=== PATIENT | female | born 1940 | race Caucasian/White ===

== ENCOUNTER → 2017-01-05 | Outpatient (CLI) | payer OTHER ==
--- NOTE | 2017-01-05 16:52 | DIAGNOSTIC IMAGING REPORT ---
THYROID ULTRASOUND CLINICAL HISTORY: Neck pain. COMPARISON STUDY: None. TECHNIQUE: Sonography of the thyroid gland was performed. FINDINGS: The right thyroid lobe measures 5.2 x 1.9 x 1.5 cm and left lobe measures 5 x 2.5 x 2.8 cm. There is an isoechoic solid nodule within the lower pole of the right lobe that measures 1.6 x 0.7 x 1.1 cm. There is a hypoechoic left lobe nodule that measures 3.3 x 2 x 2.7 cm. This has echogenic foci with comet tail artifact suggestive of a colloid cyst. This has no color flow within it. A few small lymph nodes are noted adjacent to the thyroid gland. No pathologically enlarged lymph nodes are identified. IMPRESSION: 1. Several thyroid nodules, the largest of which is a 3.3 cm hypoechoic left lobe nodule. This nodule is likely benign but ultrasound-guided fine needle aspiration could be performed based on size criteria. 2. No enlarged cervical lymph nodes. A few benign-appearing cervical lymph nodes. Electronically signed by: Lavelle Borges M.D. 01/05/2017 4:51 PM Dictated Date/Time: 01/05/2017 3:54 PM
== END | disposition home or self-care (01) ==
LOC: C.ULTR 14:37
PROVIDERS: ATTEND Nurse Practitioner Family
DX: E04.2 Nontoxic multinodular goiter (principal)

== ENCOUNTER → 2017-01-14 | Outpatient (CLI) | payer OTHER, BC ==
--- NOTE | 2017-01-14 13:36 | Discharge Instructions ---
Discharge Instructions Procedure Procedure Date: Jan 14, 2017. Reason for visit: L Thyroid Nodule. Discharge Discharge Date: Jan 14, 2017. Discharge Diagnosis: L thyroid nodule. Instructions Activity Recommendations: No limitations Return to School/Work: no limitations Recommended Home Diet: Resume Previous Diet Provider Instructions: Ultrasound guided fine-needle aspiration of a cystic left lobe thyroid nodule is performed with 2 passes utilizing 25-gauge needles. Specimens were reviewed by the pathologist in real-time and deemed adequate for diagnosis. There were no immediate complications. Jennifer Thakur Recommendations: Call your doctor if: * Temperature above 101 degrees * Pain not relieved by pain medicine ordered * There is increased drainage or redness from any incision * You have any unanswered questions or concerns. Your Doctors Instructions noted above were prepared by provider Pacheco Solis. Patient Signature Section: Patient Instructions Signature Page Alma Hernadez Patient (or Guardian) Signature/Date: I have read and understand the instructions given to me by my caregivers. Caregiver/RN/Doctor Signature/Date: The above-named patient and/or guardian has received patient instructions on this date. + Original Patient Signature Page (only) stays with chart. Please make copy for patient.
--- NOTE | 2017-01-14 13:57 | DIAGNOSTIC IMAGING REPORT ---
ULTRASOUND-GUIDED FINE-NEEDLE ASPIRATION THYROID CLINICAL HISTORY: Cystic left thyroid nodule. COMPARISON STUDY: Thyroid ultrasound dated 01/05/2017. PROCEDURE: The risks, benefits, and alternatives to the procedure were discussed with the patient. Written informed consent was obtained. The patient was placed supine in ultrasound, and the 3.3 x 2.0 x 2.7 cm predominant cystic nodule in the left lobe of the thyroid was localized by ultrasound and selected for fine needle aspiration. The left neck was prepped and draped in the usual sterile fashion. The nodule was aspirated under ultrasound guidance with 2 passes utilizing 25-gauge needles. Specimens were reviewed by the pathologist in real-time and deemed adequate for diagnosis. The patient tolerated the procedure well and left the department in satisfactory condition. IMPRESSION: Completed fine-needle aspiration of a left thyroid nodule as above. Electronically signed by: Pacheco Solis M.D. 01/14/2017 1:55 PM Dictated Date/Time: 01/14/2017 1:54 PM
== END | disposition home or self-care (01) ==
LOC: C.ULTR 12:43
PROVIDERS: ATTEND Nurse Practitioner Family
DX: E04.1 Nontoxic single thyroid nodule (principal); M54.2 Cervicalgia

== ENCOUNTER 2019-05-04 14:03 | Inpatient (IN) ==
[2019-05-04] MEDS ORDERED: ONDANSETRON INJ 2 MG/ML 2 ML VIAL IV PRN (15:33)
[2019-05-04] MEDS ORDERED: ACETAMINOPHEN 325 MG TAB PO PRN (15:33)
--- NOTE | 2019-05-04 16:03 | Gastrointestinal Consultation ---
Date of Consultation May 04, 2019 Assessment & Plan (1) RUQ abdominal mass: recommend a/p CT scan heme pos dark stools--recommend EGD and colo but she ate lunch so EGD only tomorrow. Proc and risks explained to patient which include but not limited to med reaction, bleeding, perforation, aspiration, and missed lesions. Po Protonix for possible PUD Fe def anemia--follwo H and H and transfuse prn History of Present Illness Reason for Consultation: GI bleeding Requesting Physician: DR John Xiong Attending Physician: Gisella Romero MD History of Present Illness CC dark stools HPI Pt presented to [facility] with weakness couple weeks ago with dizziness. Hgb low and she was placed on Fe. She continued to be symptomatic. Today Hgb 7.4, Fe low. She states dark stools once a day recently. Lost 30 lbs one year ago then stable. Notes early satiety. Also noted RUQ mass recently . No EGD in past. Last colo 2000. She reportedly had heme pos stool on rectal in clinic. Some RUQ discomfort. Fhx noncontributory Allergies Allergy/AdvReac Type Severity Reaction Status Date / Time No Known Allergies Allergy Unverified 05/04/19 15:33 Home Medications Home Medications Medication Instructions Recorded Confirmed Type Hawthorne-3 2 cap PO BID 05/04/19 05/04/19 History calcium carbonate [Calcium 500] mg PO DAILY 05/04/19 History Patient History Medical History Brain tumor Macular degeneration Microcytic anemia Social History Preferred Language: [place] Communication Ability: Effective Beliefs That Will Affect Care: None marital status: Current Living Situation: Spouse Other Information That Helps Us Care for You: No Feels Safe at Home: Yes Safety Concerns: Feels Safe At This Time Smoking Status: Never smoker Hx Alcohol Use: No Hx Substance Use: No Review of Systems Review of Systems: All systems reviewed & are unremarkable except as noted in HPI & below Physical Exam Eyes: PERRL, conjunctivae normal, anicteric sclerae ENMT: external ear and nose normal, oropharynx normal Neck: normal visual inspection and trachea midline Respiratory: normal respiratory effort, lungs clear to auscultation Cardiovascular: RRR, no murmur, no edema Gastrointestinal (Abdomen): pos bs, RUQ hard mass, no guarding nor rebound
[2019-05-04 16:07] LABS: Hematocrit (blood only) 24.3 % (37-47); Hemoglobin 7.6 g/dL (12.0-16.0); Mean Corpuscular Hemoglobin 21.8 pg (25-34); Mean Corpuscular Hgb Conc 31.3 g/dL (32-36); Mean Corpuscular Volume 69.8 fL (80-100); Mean Platelet Volume 7.9 fL (7.4-10.4); Platelet Count 344 K/uL (130-400); RDW Coefficient of Variation 18.8 % (11.5-14.5); RDW Standard Deviation 47.3 fL (36.4-46.3); Red Blood Count 3.48 M/uL (4.2-5.4); White Blood Count 10.11 K/uL (4.8-10.8)
[2019-05-04 16:19] LABS: INR 1.2 (0.9-1.1); Partial Thromboplastin Ratio 0.9; Partial Thromboplastin Time 24.4 Seconds (21.0-31.0); Prothrombin Time 11.9 Seconds (9.0-12.0)
[2019-05-04 16:26] LABS: Alanine Aminotransferase 55 U/L (12-78); Albumin Level 2.6 gm/dl (3.4-5.0); Aspartate Aminotransferase 125 U/L (15-37); BUN Creatinine Ratio 19.8 (10-20); Blood Urea Nitrogen 18 mg/dl (7-18); Calcium 8.6 mg/dl (8.5-10.1); Carbon Dioxide 27 mmol/L (21-32); Chloride 98 mmol/L (98-107); Est GFR (African American) 70.9; Est GFR (Non-African American) 61.2; Glucose 100 mg/dl (70-99); Potassium 4.7 mmol/L (3.5-5.1); Sodium 132 mmol/L (136-145)
[2019-05-04 16:29] LABS: Albumin Globulin Ratio 0.7 (0.9-2); Alkaline Phosphatase 148 U/L (45-117); Bilirubin,Total 0.5 mg/dl (0.2-1); Globulin 3.9 gm/dl (2.5-4.0); Total Protein 6.5 gm/dl (6.4-8.2)
[2019-05-04] MEDS: PANTOprazole 40 MG in SYRINGE 0 ML IV SCH (17:00)
[2019-05-04] MEDS ORDERED: SODIUM CHLORIDE 0.9% 250 ML IV PRN (17:19)
--- NOTE | 2019-05-04 18:09 | History & Physical Report ---
Date of Service May 04, 2019 Assessment & Plan (1) RUQ abdominal mass: GI Bleed -Positive Heme-occult in office today. -GI Consulted - Upper Endoscopy in AM tomorrow. -NPO After midnight -Famotidine 20mg IV BID ordered for gastric bleed protection. -Follow H and H and transfuse as needed. RUQ Abdominal Mass -Mass in RUQ abdomen measures 12x7cm. -GI Consulted. -CT w/ Abd/Pelv ordered. Anemia - acute blood loss -Hgb 8.2 in office and 7.6 now. -Type and Cross ordered for packed RBC if Hgb <7 PRN. -CBC ordered for AM -Home Iron on hold. Elevated transaminases - Follow CT scan results. Macular Degeneration -Hx of 9 years -Takes Sharon 3 and Eye vitamins -Meds on hold. FEN/GI - No IV Fluids, Regular Diet - NPO after midnight, Replete Electrolytes as needed Code Status - Full code DVT Prophylaxis - Ambulate as tolerated, medical anticoagulation contraindicated - concern for GI Bleed. Dispo - PCU Telemetry Present on Admission?: Yes (2) GI bleed: Present on Admission?: Yes (3) Anemia: Present on Admission?: Yes (4) Macular degeneration: Present on Admission?: Yes History of Present Illness Chief Complaint: Patient is a pleasant 78 year old female with PMHx of Anemia, Brain tumor, and Macular Degeneration, that presents to the hospital today under direct admission after evaluation at outpatient clinic for GI Bleed, Abdominal Mass of recent discovery, and Symptomatic Anemia. Patient states that 2 weeks ago she had presented to the outpatient clinic with complaints of fatigue and after work up was found to have a microcytic anemia with a Hgb 7.4. She was prescribed iron pills that she has been taking as prescribed, but still continued to notice increasing presyncopal symptoms, balance disturbances, weakness, and fatigue. She states that since then she still is unable to climb a flight of stairs without becoming SOB and requiring to rest and also that she is unable to style her hair because holding her arms up high exhausts her. Patient also notes that as of 1 week ago, she noticed a firm abdominal mass (12cm L x 7cm W) located under her ribcage on the right. In the clinic today patient presented for f/u and had a Hgb of 8.2 and a positive heme-occult and was sent for admission for further evaluation. Patient reports occasional loose dark stools, but denies any edward blood. Primary Care Provider: Kristina Argueta PA-C Allergies Allergy/AdvReac Type Severity Reaction Status Date / Time No Known Allergies Allergy Unverified 05/04/19 15:33 Home Medications Home Medications Medication Instructions Recorded Confirmed Type Sharon-3 2 cap PO BID 05/04/19 05/04/19 History calcium carbonate [Calcium 500] mg PO DAILY 05/04/19 History Past Med/Surg History Medical History Brain tumor Macular degeneration Microcytic anemia Social History Preferred Language: Czech Communication Ability: Effective Beliefs That Will Affect Care: None marital status: Current Living Situation: Spouse Other Information That Helps Us Care for You: No Feels Safe at Home: Yes Safety Concerns: Feels Safe At This Time Smoking Status: Never smoker Hx Alcohol Use: No Hx Substance Use: No Review of Systems Constitutional: + fatigue, + weakness and + weight loss (30 lbs weight loss over 1 year); no fever, no chills, no sweats and no increased appetite (Decreased appetite) Eyes: no eye pain and no photophobia Ear, Nose, Mouth, Throat: + dizziness; no ear pain, no tinnitus, no nasal trauma and no epistaxis Respiratory: + dyspnea on exertion; no cough, no chest congestion and no pain on inspiration Cardiovascular: + dyspnea, + dyspnea on exertion and + lightheadedness; no chest pain, no chest pain at rest, no dyspnea at rest, no palpitations, no syncope (However, near syncopal ) and no edema Gastrointestinal: + early satiety, + heartburn, + nausea (occasional after eating), + blood in stools (Dark loose stools, but no edward blood) and + problem reported (1 week history of abdominal mass in RUQ ); no abdominal pain, no vomiting, no coffee ground emesis, no hematemesis, no pain with swallowing, no dysphagia, no change in bowel habits, no constipation and no diarrhea/loose stools Genitourinary: no dysuria, no urinary frequency, no urinary hesitancy, no urinary incontinence and no hematuria Musculoskeletal: + back pain (noted in the past, but not currently) and + muscle weakness (weakness noted when keeping her arms above her heads) Integumentary: no rash Neurologic: + unsteadiness and + dizziness Physical Exam Constitutional: well developed and well nourished Eyes: normal visual garcía by confrontation, + anicteric sclerae and EOM intact bilaterally ENMT: Nose: no septum abnormality, no sinus tenderness, no epistaxis, face symmetric, no facial edema and no facial tenderness Neck: normal visual inspection and trachea midline; no anterior neck swelling and neck nontender Respiratory: normal respiratory effort; no respiratory distress, no labored breathing, does not use accessory muscles and no cough Auscultation: lungs clear to auscultation bilaterally Cardiovascular: Rate/Rhythm: regular rate and regular rhythm Heart Sounds: normal S1 and normal S2; no click, no murmur and no cardiac rub Vessels: dorsalis pedis pulses present; no JVD Extremities: no pedal edema Gastrointestinal (Abdomen): Inspection/Auscultation: + abdomen distended (Slight distension overlying patient's abdominal mass in the RUQ.) and normal bowel sounds; no abdominal wall ecchymosis Percussion/Palpation: + abdomen tender (TTP overlying abdominal mass 3/10 pain. ), + abdominal mass (RUQ mass measuring 12x7cm ) and + abdomen firm (Firm overlying abdominal mass in RUQ); no guarding Skin: no rashes, warm and dry normal turgor Neurologic: awake; not confused and not obtunded Psychiatric: A+Ox3, euthymic affect Orientation: alert and oriented x 3 Results & Data Vital Signs (Past 12 Hours) Vital Signs Temp Pulse Resp BP Pulse Ox 05/04/19 17:16 36.7 C 79 16 97/60 L 100 Laboratory Results Abnormal lab results 05/04/19 05/04/19 05/04/19 Range/Units 15:56 15:56 15:56 RBC 3.48 L (4.2-5.4) M/uL Hgb 7.6 L (12.0-16.0) g/dL Hct 24.3 L (37-47) % MCV 69.8 L (80-100) fL MCH 21.8 L (25-34) pg MCHC 31.3 L (32-36) g/dL RDW Std Deviation 47.3 H (36.4-46.3) fL RDW Coeff of Mitchell 18.8 H (11.5-14.5) % INR 1.2 H (0.9-1.1) Sodium 132 L (136-145) mmol/L Glucose 100 H (70-99) mg/dl AST 125 H (15-37) U/L Alkaline Phosphatase 148 H (45-117) U/L Albumin 2.6 L (3.4-5.0) gm/dl Albumin/Globulin Ratio 0.7 L (0.9-2) Crossmatch 05/04/19 Range/Units 15:56 RBC (4.2-5.4) M/uL Hgb (12.0-16.0) g/dL Hct (37-47) % MCV (80-100) fL MCH (25-34) pg MCHC (32-36) g/dL RDW Std Deviation (36.4-46.3) fL RDW Coeff of Mitchell (11.5-14.5) % INR (0.9-1.1) Sodium (136-145) mmol/L Glucose (70-99) mg/dl AST (15-37) U/L Alkaline Phosphatase (45-117) U/L Albumin (3.4-5.0) gm/dl Albumin/Globulin Ratio (0.9-2) Crossmatch See Detail Medications Administered Current Inpatient Medications Acetaminophen (Tylenol) 650 mg PO Q4H PRN PRN Reason: pain/fever Stop: 06/03/19 15:32 Pantoprazole Sodium 40 mg/ (Syringe) 10 mls @ 5 mls/min IV BID@0900,2100 ALIVIA Stop: 06/03/19 16:59 Last Admin: 05/04/19 17:00 Dose: 5 mls/min Documented by: Sodium Chloride (Nss) 250 mls @ 15 mls/hr IV .[id number] PRN PRN Reason: For Transfusion Stop: 06/03/19 17:18 Ondansetron HCl (Zofran) 4 mg IV Q6H PRN PRN Reason: Nausea Stop: 06/03/19 15:32 Code Status & VTE Plan Code Status Full Code VTE Prophylaxis Plan VTE Prophylaxis will be ordered: No Reason for no VTE drug order: Contraindicated Supervising Physician Co-Signing Physician Notes Resident Physician Supervision Note: I independently interviewed and examined the patient and verified the ferrara history and physical, reviewed labs and image studies, discussed the case with the resident Dr. Wilkinson and agree with the findings and care plan. PG Care Time/CCT Total # of Minutes Spent Total Time Spent with Patient: Total time spent is greater than 50% in coordination of care (as documented) at patient's floor/unit and/or counseling patient: Resident Activity Tracking Resident Involvement: Resident Care Provided Care Provided: Adult Hospital Medicine
[2019-05-04] MEDS ORDERED: IOVERSOL 100ml IV PRN (19:52)
--- NOTE | 2019-05-04 20:32 | CT Scan Report ---
ABDOMEN AND PELVIS CT WITH IV AND ORAL CONTRAST CT DOSE: 367.64 mGycm HISTORY: Acute generalized abdominal pain with abdominal mass. abdominal pain, abdominal mass TECHNIQUE: Multiaxial CT images of the abdomen and pelvis were performed following the use of intrave nous and oral contrast. A dose lowering technique was utilized adhering to the principles of ALARA. COMPARISON STUDY: None. FINDINGS: Indeterminate 4 mm solid nodule of the basal left lower lobe, image 43 series 3. Right lung base appe ars clear. There is no pneumatosis or pneumoperitoneum identified. Imaged inferior cardiac chambers a re mildly enlarged with coronary arterial calcifications. Spleen is unremarkable. Mild generalized pancreatic atrophy. Adrenal glands appear unremarkable. Mild ly contracted gallbladder. Periportal edema without biliary ductal dilation. Biliary tree appears pat ent. Multiple large masses are noted about the liver occupying the majority of the superior right hep atic lobe. Cerebral mass or conglomerate masses of the left hepatic lobe noted measuring up to 8.4 x 7.6 cm. Trace perihepatic ascites. 7.9 cm cyst of the lateral right kidney. No renal or ureteral calc chetna or obstructive uropathy. Urinary bladder is unremarkable. Uterus and adnexa are also within alon l limits. Aorta and IVC are within normal limits. No small bowel obstruction. There is a large heterogeneous infiltrative enhancing and likely necrotic mass of the distal transverse colon/splenic flexure which measures up to 6.7 x 4.2 x 6.2 cm. On the sagittal images the greatest dimension of this lesion measures up to 8 cm in length. Mass results in marked luminal narrowing of the colon. Pericolonic stranding is noted with adjacent pericolonic promi nent lymph nodes. Mild mesenteric and omental nodularity about the abdominal left upper quadrant. Mod erate volume formed colonic stool noted throughout. Fluid seen within the terminal ileum. Mild genera lized body wall edema. Tarlov cysts noted about the sacrum. Severe degenerative changes about the pub ic symphysis. There is no definite evidence of osseous metastatic disease. Bones appear intact. IMPRESSION: 1. Large infiltrative mass with transmural involvement involves the distal transverse colon and splen ic flexure measuring up to 8.0 cm in greatest dimension. Adjacent prominent pericolonic lymph nodes w ith adjacent mesenteric/omental stranding and nodularity compatible with lymphatic metastasis with po ssible omental carcinomatosis. 2. The mass results in marked narrowing of the bowel lumen without bowel obstruction, pneumatosis or pneumoperitoneum. 3. Extensive hepatic metastatic disease. 4. Indeterminate 4 mm solid nodule of the basal left lower lobe. 5. No evidence of osseous metastatic disease. Electronically signed by: Josue Galindo M.D. 05/04/2019 8:29 PM
[2019-05-04] MEDS ORDERED: FAMOTIDINE 20 MG in SYRINGE 3 ML IV SCH (21:00)
[2019-05-04] MEDS ORDERED: SODIUM CHLORIDE 0.9% 1000ML 500 ML IV ONE (21:49)
[2019-05-04] MEDS ORDERED: SODIUM CHLORIDE 0.9% 1000ML 1,000 ML IV SCH (22:00)
[2019-05-05 00:40] LABS: Hematocrit (blood only) 21.5 % (37-47); Hemoglobin 6.9 g/dL (12.0-16.0)
[2019-05-05] MEDS ORDERED: hydrOXYzine HCl 10 MG TAB PO PRN (02:52)
[2019-05-05] MEDS ORDERED: LORazepam 0.5 MG/1 ML VIAL IV PRN (02:52)
[2019-05-05] MEDS ORDERED: SODIUM CHLORIDE 0.9% 250 ML IV PRN (02:52)
[2019-05-05] MEDS: PANTOprazole 40 MG in SYRINGE 0 ML IV SCH (08:34)
--- NOTE | 2019-05-05 09:35 | Consultation Report ---
DATE OF CONSULTATION: 05/05/2019 MEDICAL ONCOLOGY CONSULTATION REASON FOR CONSULTATION: Probable metastatic colorectal cancer (hepatic mets). HISTORY OF PRESENT ILLNESS: Alma is a very pleasant 79-year-old female who was admitted to [facility] yesterday with suspected gastrointestinal bleeding. The patient had been complaining of fatigue and decreased exercise tolerance for a couple of months now. She actually notes trying to donate blood a few months back and was told she was anemic. She had brought this up to her primary provider and no further workup she has undertaken. Upon admission, the patient was found to be profoundly anemic with hemoglobin of 7.6, hematocrit 24.3 and MCV of 69.8 suggestive of ongoing iron deficiency. Also of note, liver transaminases and alkaline phosphatase are both markedly elevated and her albumin is quite low at 2.6. The patient relates a 30-pound weight loss over the past year. She has had no bowel symptoms per se, just some nonspecific migratory abdominal pains that had never been persistent. She also denies any change in her stool quality, shape, or presence of melena. Upon presentation to the Emergency Room, CT scan of the abdomen and pelvis confirms a relatively large transverse colon mass and innumerable hepatic metastatic lesions. Gastroenterology is currently on consult, I suspect a colonoscopy will be done to establish a diagnosis. The patient has no family history of colorectal cancer. PAST MEDICAL HISTORY: Positive for brain tumor, macular degeneration and microcytic anemia. HOME MEDICATIONS: Include omega 3 fish oil, calcium carbonate. ALLERGIES: No known drug allergies. SOCIAL HISTORY: The patient is , resides with her spouse, is retired. She is a nonsmoker, nondrinker, nonsubstance abuser. FAMILY HISTORY: Again, negative for colorectal cancer. However, she had a brother who recently passed from mantle cell lymphoma. REVIEW OF SYSTEMS: CONSTITUTIONAL: As per HPI, most notably for fatigue, decreased exercise tolerance, anorexia and weight loss. Negative for fevers, chills or sweats. SKIN: No rashes or lesions. No history of dermatoses. HEENT: Negative for headaches, lightheadedness or dizziness. No acute visual or hearing deficits. No sinus symptoms, sore throat or dysphagia. LYMPHATICS: No history of lymphoproliferative disease. CARDIAC: No history of coronary artery disease. No current angina or palpitations. PULMONARY: No history of COPD. No shortness of breath, dyspnea or orthopnea. No cough or hemoptysis. GASTROINTESTINAL: Again, vague nonspecific abdominal pains. Denies diarrhea or constipation. No hematochezia, melena or edward rectal bleeding is reported. GENITOURINARY: No hematuria, dysuria, or urinary incontinence. PSYCHIATRIC: Negative for anxiety, depression or psychoses. MUSCULOSKELETAL: Negative for arthralgias or myalgias. No overt muscle weakness. ENDOCRINE: Negative for diabetes or thyroid disease. NEUROLOGIC: Negative for seizure, stroke, or migraine headache. HEMATOLOGIC: Positive for microcytic anemia. PHYSICAL EXAMINATION: GENERAL: A very pleasant 79-year-old female. Awake, alert and appropriate, in no acute distress. VITAL SIGNS: Temperature 36.5, pulse 69, respiratory rate 17, blood pressure 102/60. SKIN: Warm, dry, noncyanotic without petechia, rash or ecchymosis. HEENT: Head is atraumatic, normocephalic. Eyes: PERRLA, EOMI. Sclerae nonicteric. No conjunctival injection. Nares patent without rhinorrhea or discharge. Throat is clear. Tongue is midline. Mucous membranes are moist. NECK: Supple without JVD or thyromegaly. LYMPHATICS: No cervical, supraclavicular, axillary or inguinal palpable nodes. HEART: Regular rate and rhythm. No clicks, rubs, murmurs or gallops. LUNGS: Clear to auscultation bilaterally. ABDOMEN: Soft, nontender, nondistended. No palpable hepatosplenomegaly. EXTREMITIES: No calf tenderness or swelling. No clubbing, cyanosis or edema. MUSCULOSKELETAL: Strength and pulses are equal in all 4 quadrants. NEUROLOGICAL: She is awake, alert and oriented x3. Cranial nerves II-XII are intact. No gross motor or sensory deficits are noted. LABORATORY DATA: WBC count 10,110, hemoglobin 6.9, platelet count 344,000. PT 11.9, PTT 24.4. Sodium 132, potassium 4.7, chloride 98, carbon dioxide 27, BUN 18, creatinine 0.89. AST 125, alkaline phosphatase 148, albumin 2.6. RADIOGRAPHIC DATA: CT scan of the abdomen and pelvis reveals a large infiltrative mass with transmural involvement in distal transverse colon, splenic flexure, measuring 8 cm. Adjacent prominent pericolonic lymph nodes with adjacent mesenteric and omental stranding, extensive hepatic metastatic disease with relatively large left hepatic lobe lesion. IMPRESSION: 1. Probable metastatic colorectal cancer. 2. Microcytic anemia consistent with iron deficiency. 3. Elevated liver transaminases. 4. Hypoalbuminemia. 5. Anorexia/weight loss. PLAN: I had the pleasure of meeting Alma today at bedside. She admits to feeling poorly for about 2 months leading up to admission. She also reports a 30-pound weight loss over the past year. Surprisingly, she did not manifest more severe abdominal symptoms. CT scan suggests this lesion may be near obstructing. Would encourage Gastroenterology to proceed with formal colonoscopy and biopsy to establish a diagnosis and to stratify risk of possible obstruction moving forward. Generally in the setting of metastatic disease, surgery is not a part of management unless there is an impending obstruction risk. I have asked the managing mba internship to proceed with a CEA level and perhaps iron studies. Once the patient is completely worked up, would consider giving her some IV iron to expedite hematopoietic recovery. Her nutritional status at some point will need to be addressed as well. Generally speaking, metastatic colorectal cancer is managed with a combination oxaliplatin, 5-FU and leucovorin along with the appropriate targeted therapy. Once a biopsy is obtained, we will request KRAS analysis. We will continue to follow along during the patient's hospital stay and establish outpatient followup once diagnosis is confirmed. Thank you very much for allowing me to participate in her care. If you have any questions or concerns, feel free to contact me at any time.
[2019-05-05 09:38] LABS: Hematocrit (blood only) 31.2 % (37-47); Hemoglobin 9.9 g/dL (12.0-16.0); Mean Corpuscular Hemoglobin 23.2 pg (25-34); Mean Corpuscular Hgb Conc 31.7 g/dL (32-36); Mean Corpuscular Volume 73.1 fL (80-100); Mean Platelet Volume 7.8 fL (7.4-10.4); Platelet Count 315 K/uL (130-400); RDW Coefficient of Variation 20.7 % (11.5-14.5); RDW Standard Deviation 54.4 fL (36.4-46.3); Red Blood Count 4.27 M/uL (4.2-5.4); White Blood Count 8.33 K/uL (4.8-10.8)
[2019-05-05 09:50] LABS: Anisocytosis Present; Basophils # (auto) 0.04 K/uL (0-0.2); Basophils % (auto) 0.5 %; Eosinophils # (auto) 0.08 K/uL (0-0.5); Immature Granulocytes # (auto) 0.04 K/uL (0.00-0.02); Immature Granulocytes % (auto) 0.5 %; Lymphocytes # (auto) 0.85 K/uL (1.2-3.4); Lymphocytes % (auto) 10.2 %; Microcytosis Present; Monocytes # (auto) 0.69 K/uL (0.11-0.59); Monocytes % (auto) 8.3 %; Neutrophils # (auto) 6.63 K/uL (1.4-6.5); Neutrophils % (auto) 79.5 %
[2019-05-05 10:21] LABS: BUN Creatinine Ratio 13.5 (10-20); Calcium 8.2 mg/dl (8.5-10.1); Creatinine Clr Calc Pharmacy 54.3 ml/min; Est GFR (African American) 85.3; Est GFR (Non-African American) 73.6; Potassium 3.8 mmol/L (3.5-5.1)
--- NOTE | 2019-05-05 11:15 | Palliative Care Consultation ---
Date of Consultation May 05, 2019 Assessment & Plan (1) Goals of care, counseling/discussion: -79 year old female patient with PMH macular degeneration, microcytic anemia, and brain tumor presented to the hospital as a direct admission after evaluation at outpatient clinic for GI Bleed, abdominal mass of recent discovery, and symptomatic anemia. Apparently, two weeks ago she had presented to the outpatient clinic with complaints of fatigue and after work up was found to have a microcytic anemia with a hgb 7.4. She was prescribed medication which she had been taking. She then developed fatigue and presyncopal symptoms. CT abd/ pelvis shows: "1. Large infiltrative mass with transmural involvement involves the distal transverse colon and splenic flexure measuring up to 8.0 cm in greatest dimension. Adjacent prominent pericolonic lymph nodes with adjacent mesenteric/omental stranding and nodularity compatible with lymphatic metastasis with possible omental carcinomatosis. 2. The mass results in marked narrowing of the bowel lumen without bowel obstruction, pneumatosis or pneumoperitoneum. 3. Extensive hepatic metastatic disease. 4. Indeterminate 4 mm solid nodule of the basal left lower lobe. 5. No evidence of osseous metastatic disease." Patient is to undergo EGD today and colonoscopy after she is prepped. Heme/onc consulted to follow, will know treatment plan after biopsy results. Palliative care is consulted to provide supportive care. -Met with patient and her , Elke, in room 219. Patient is feeling well, sitting in chair. She appears healthy and younger than stated age. -Patient currently has no symptoms. She is feeling better after transfusion. Patient's is also currently suffering from malignant disease and starts radiation treatment on 05/25. They are both remarkably upbeat given their situation. They have one adult daughter who lives close by, but she does not know about her mother's illness as of yet. -Patient is interested in following with palliative care as an outpatient if any symptoms or difficulties arise. I gave her the information for Dr. Tam's outpatient office and a number to call to schedule an appointment. -Palliative care will follow as needed throughout hospitalization. Uncertain treatment plan at this point until biopsy results are back and options are presented. (2) GI bleed: (3) RUQ abdominal mass: Supervising Physician Co-Signing Physician Notes Chart reviewed, patient seen and examined-no family or friends at bedside. ER Collaborated with Carie Tayla, CHARGE OUT CLERK PE: Patient awake and alert, no acute distress HEENT: EOMI, hearing within normal limits Respirations: Unlabored CV: Well-perfused Neuro: Alert and oriented x4 Agree with above note, assessment and plan as per CRISTI Walsh-will continue to follow and assist patient and family with medical decision making. Discussed outpatient palliative follow-up if patient desires-information given regarding contacting outpatient clinic. History of Present Illness Reason for Consultation: Supportive care Requesting Physician: Dr. Wilkinson Attending Physician: Gisella Romero MD History of Present Illness This 79 year old female patient with PMH macular degeneration, microcytic anemia, and brain tumor presented to the hospital as a direct admission after evaluation at outpatient clinic for GI Bleed, abdominal mass of recent discovery, and symptomatic anemia. Apparently, two weeks ago she had presented to the outpatient clinic with complaints of fatigue and after work up was found to have a microcytic anemia with a hgb 7.4. She was prescribed medication which she had been taking. She then developed fatigue and presyncopal symptoms. CT abd/ pelvis shows: "1. Large infiltrative mass with transmural involvement involves the distal transverse colon and splenic flexure measuring up to 8.0 cm in greatest dimension. Adjacent prominent pericolonic lymph nodes with adjacent mesenteric/omental stranding and nodularity compatible with lymphatic metastasis with possible omental carcinomatosis. 2. The mass results in marked narrowing of the bowel lumen without bowel obstruction, pneumatosis or pneumoperitoneum. 3. Extensive hepatic metastatic disease. 4. Indeterminate 4 mm solid nodule of the basal left lower lobe. 5. No evidence of osseous metastatic disease." Patient is to undergo EGD today and colonoscopy after she is prepped. Heme/onc consulted to follow, will know treatment plan after biopsy results. Palliative care is consulted to provide supportive care. Thank you kindly for this consult. I will follow as needed. Allergies Allergy/AdvReac Type Severity Reaction Status Date / Time No Known Allergies Allergy Verified 05/05/19 12:21 Home Medications Home Medications Medication Instructions Recorded Confirmed Type [place]-3 2 cap PO BID 05/04/19 05/04/19 History calcium carbonate [Calcium 500] mg PO DAILY 05/04/19 History Patient History Medical History Brain tumor Macular degeneration Microcytic anemia Surgical History No history of previous surgery Social History Preferred Language: Dutch Communication Ability: Effective Beliefs That Will Affect Care: None marital status: Current Living Situation: Spouse Other Information That Helps Us Care for You: No Feels Safe at Home: Yes Safety Concerns: Feels Safe At This Time Smoking Status: Never smoker Do You Dip or Chew Tobacco: No ; Hx Alcohol Use: No Hx Substance Use: No Review of Systems Constitutional: + fatigue and + weakness Respiratory: no dyspnea Cardiovascular: no chest pain and no edema Gastrointestinal: no abdominal pain RUQ mass Physical Exam Constitutional: well developed and well nourished appears younger than stated age ENMT: external ear and nose normal, oropharynx normal Neck: normal visual inspection Respiratory: normal respiratory effort, lungs clear to auscultation Cardiovascular: RRR, no murmur, no edema Gastrointestinal (Abdomen): Percussion/Palpation: + abdominal mass Skin: no rashes, warm and dry Neurologic: moves all extremities and awake Psychiatric: A+Ox3, euthymic affect Insight: excellent insight Results & Data Vital Signs (Past 12 Hours) Vital Signs Temp Pulse Resp BP Pulse Ox 05/05/19 08:32 36.8 C 65 16 91/51 L 95 05/05/19 08:21 67 18 91/51 L 98 05/05/19 07:52 69 16 97/63 L 95 05/05/19 07:22 69 17 102/60 96 05/05/19 06:51 36.5 C 69 16 93/54 L 95 05/05/19 06:37 36.8 C 62 16 90/50 L 94 05/05/19 06:15 36.3 C L 69 16 86/51 L 95 05/05/19 05:00 74 18 98/57 L 97 05/05/19 04:35 73 16 94/54 L 95 05/05/19 04:05 78 18 94/60 L 93 05/05/19 03:32 37.1 C 75 16 96/56 L 97 05/05/19 03:20 37.1 C 79 18 96/58 L 94 PG Care Time/CCT Total # of Minutes Spent Total Time Spent with Patient: Total time spent is greater than 50% in coordination of care (as documented) at patient's floor/unit and/or counseling patient: Time Spent Midlevel 50 minutes with >50% of the time spent at bedside with patient and family discussing condition and GOC. Attending Spent 20 minutes in addition to the 50 minutes spent by CRISTI Walsh for a total of 70 minutes with greater than 50% of the time spent at bedside discussing role of palliative care as well as outpatient follow-up availability.
--- NOTE | 2019-05-05 11:47 | Anesthesiology Consultation ---
Date of Service May 05, 2019 Assessment & Plan (1) Encounter for pre-operative examination: Chart Review Chart Review: Acceptable Risk for Surgery and Patient NOT seen in Pre Admission Testing Consults Requested none ASA ASA3 Proposed Anesthesia Anesthesia Type: MAC Risk / Benefits Reviewed With: PT / POA / Parent / Guardian, Accepts Plan and Informed Consent Obtained History Surgery Operation Date: 05/05/19 08:30 Proposed Procedures p Esophagogastroduodenoscopy Dr Min Copeland Height/Weight Height: 5 ft 6 in Weight: 61.6 kg Allergies Allergy/AdvReac Type Severity Reaction Status Date / Time No Known Allergies Allergy Verified 05/05/19 12:21 Medications Home Medications Medication Instructions Recorded Confirmed Last Taken [place]-3 2 cap PO BID 05/04/19 05/04/19 05/04/19 calcium carbonate [Calcium 500] mg PO DAILY 05/04/19 05/04/19 Active Medications Generic Name Dose Route Start Last Admin Trade Name Freq PRN Reason Stop Dose Admin Pantoprazole Sodium 40 mg/ 10 mls @ 5 mls/min 05/04/19 17:00 05/05/19 08:34 Syringe IV 06/03/19 16:59 5 mls/min BID@0900,2100 ALIVIA Administration Ioversol 94 ml 05/04/19 19:52 05/04/19 19:52 Optiray 320 100ml IV 05/08/19 19:51 94 ml ONCE PRN Administration Interaction Checking NPO Date Last Intake of Fluids: 05/04/19 Time Last Intake of Fluids: 22:00 Date Last Intake of Solids: 05/04/19 Time Last Intake of Solids: 22:00 Past Medical History Medical History Brain tumor Macular degeneration Microcytic anemia Exercise / Class Metabolic Activity II 4-5 Yardwork/Stairs/Walk up hill Past Surgical History Surgical History No history of previous surgery Past Anesthesia History No Family Hx of Anesthesia Complications History of PONV No Hx of Motion Sickness Social History Smoking Status: Never smoker Do You Dip or Chew Tobacco: No Hx Alcohol Use: No Hx Substance Use: No Review of Systems Negative for chest pain or shortness of breath until recently when SOB developed with anemia. Patient denies active symptoms of GERD. Physical Exam Vital Signs Last Vital Signs Temp 36.6 C 05/05/19 12:26 Pulse 73 05/05/19 12:26 Resp 18 05/05/19 12:26 BP 94/56 L 05/05/19 12:26 Pulse Ox 96 05/05/19 12:26 Constitutional not obese ENMT Mouth: no TMJ abnormality and oral opening not small Thyromental Distance: > or= 3.5 Finger Breadths Mallampati Class: II Neck normal visual inspection; neck extension not limited Respiratory normal respiratory effort Auscultation: lungs clear to auscultation bilaterally Cardiovascular Rate/Rhythm: regular rate and regular rhythm Heart Sounds: no murmur Neurologic moves all extremities Psychiatric Orientation: alert and oriented x 3 Testing Laboratory Results 05/05/19 09:03 05/05/19 09:03 PT 11.9 Seconds (9.0-12.0) 05/04/19 15:56 INR 1.2 (0.9-1.1) H 05/04/19 15:56 APTT 24.4 Seconds (21.0-31.0) 05/04/19 15:56 Blood Type O Positive 05/04/19 15:56 Antibody Screen NEGATIVE 05/04/19 15:56
--- NOTE | 2019-05-05 12:28 | History & Physical Report ---
Date of Service May 05, 2019 History of Present Illness Chief Complaint: anemia Primary Care Provider: Kristina Argueta PA-C For EGD Allergies Allergy/AdvReac Type Severity Reaction Status Date / Time No Known Allergies Allergy Verified 05/05/19 12:21 Home Medications Home Medications Medication Instructions Recorded Confirmed Type [place]-3 2 cap PO BID 05/04/19 05/04/19 History calcium carbonate [Calcium 500] mg PO DAILY 05/04/19 History Past Med/Surg History Medical History Brain tumor Macular degeneration Microcytic anemia Social History Preferred Language: Swazi Communication Ability: Effective Beliefs That Will Affect Care: None marital status: Current Living Situation: Spouse Other Information That Helps Us Care for You: No Feels Safe at Home: Yes Safety Concerns: Feels Safe At This Time Smoking Status: Never smoker Hx Alcohol Use: No Hx Substance Use: No Physical Exam Constitutional: + thin Respiratory: normal respiratory effort Cardiovascular: Rate/Rhythm: regular rate Gastrointestinal (Abdomen): Epigastric mass Results & Data Vital Signs (Past 12 Hours) Vital Signs Temp Pulse Pulse Resp BP BP BP 05/05/19 12:26 36.6 C 73 18 94/56 L 05/05/19 11:14 36.6 C 75 16 89/53 L 05/05/19 08:32 36.8 C 65 16 91/51 L 05/05/19 08:21 67 18 91/51 L 05/05/19 07:52 69 16 97/63 L 05/05/19 07:22 69 17 102/60 05/05/19 06:51 36.5 C 69 16 93/54 L 05/05/19 06:37 36.8 C 62 16 90/50 L 05/05/19 06:15 36.3 C L 69 16 86/51 L 05/05/19 05:00 74 18 98/57 L 05/05/19 04:35 73 16 94/54 L 05/05/19 04:05 78 18 94/60 L 05/05/19 03:32 37.1 C 75 16 96/56 L 05/05/19 03:20 37.1 C 79 18 96/58 L Pulse Ox 05/05/19 12:26 96 08/02/19 11:14 98 05/05/19 08:32 95 05/05/19 08:21 98 05/05/19 07:52 95 05/05/19 07:22 96 05/05/19 06:51 95 05/05/19 06:37 94 05/05/19 06:15 95 05/05/19 05:00 97 05/05/19 04:35 95 05/05/19 04:05 93 05/05/19 03:32 97 05/05/19 03:20 94 Code Status & VTE Plan VTE Prophylaxis Plan VTE Prophylaxis will be ordered: No Reason for no VTE drug order: Contraindicated
[2019-05-05] MEDS ORDERED: SODIUM CHLORIDE 0.9% 1000ML 1,000 ML IV SCH (12:30)
--- NOTE | 2019-05-05 13:10 | GI REPORT ---
Patient Name: Alma Hernadez Procedure Date: 05/05/2019 12:44 PM Date of : 1940 Admit Type: Inpatient Age: 79 Gender: Female Attending MD: Gabriel Copeland MD Procedure: Upper GI endoscopy Providers: Gabriel Copeland MD Referring MD: Elham Shanks Do Indications: Iron deficiency anemia Medicines: Propofol total dose 150 mg IV, Lidocaine 80 mg IV Complications: No immediate complications. Estimated Blood Loss: Estimated blood loss: none. Procedure: Pre-Anesthesia Assessment: - Prior to the procedure, a History and Physical was performed, and patient medications, allergies and sensitivities were reviewed. The patient's tolerance of previous anesthesia was reviewed. - The risks and benefits of the procedure and the sedation options and risks were discussed with the patient. All questions were answered and informed consent was obtained. After obtaining informed consent, the endoscope was passed under direct vision. Throughout the procedure, the patient's blood pressure, pulse, and oxygen saturations were monitored continuously. The Endoscope was introduced through the mouth, and advanced to the second part of duodenum. The upper GI endoscopy was accomplished without difficulty. The patient tolerated the procedure well. Findings: The Z-line was regular and was found 40 cm from the incisors. The examined esophagus was normal. The entire examined stomach was normal. The examined duodenum was normal. Impression: - Z-line regular, 40 cm from the incisors. - Normal esophagus. - Normal stomach. - Normal examined duodenum. - No specimens collected. Recommendation: - Return patient to [facility] for [facility] care. - Perform a colonoscopy in 3 days. Gabriel Copeland M.D. Gabriel Copeland MD 05/05/2019 1:09:38 PM This report has been signed electronically. Note Initiated On: 05/05/2019 12:44 PM Number of Addenda: 0 I attest to the content of the Intraoperative Record and orders documented therein, exceptions below {[id number]}
[2019-05-05] MEDS ORDERED: PROPOFOL IV EMULSION 10 MG/ML 20 ML VIAL IV ONE (13:12)
[2019-05-05] MEDS ORDERED: LIDOCAINE HCL 2% 2 ML VIAL/AMP(20MG/ML) INFIL ONE ×3 (13:12)
--- NOTE | 2019-05-05 13:29 | Progress Note ---
DATE: 05/05/2019 SUBJECTIVE: The patient underwent an EGD today for evaluation of anemia and heme-positive stool. EGD was normal. CAT scan, however, shows significant metastatic disease involving the entire left lobe of the liver with a mass at the left side of the colon on CT scan, most likely a colon primary. The patient will get a CEA level and get prepped for a colonoscopy on Wednesday. Dr. Lovett will be covering over the weekend.
--- NOTE | 2019-05-05 13:30 | Anesthesiology Progress Note ---
Date of Service May 05, 2019 Anesthesia Post Procedure Vital Signs Vital Signs: Temp Pulse Pulse Resp BP BP BP 05/05/19 13:24 70 18 109/57 L 05/05/19 13:09 65 18 92/57 L 05/05/19 12:26 36.6 C 73 18 94/56 L 05/05/19 11:14 36.6 C 75 16 89/53 L 05/05/19 08:32 36.8 C 65 16 91/51 L 05/05/19 08:21 67 18 91/51 L 05/05/19 07:52 69 16 97/63 L 05/05/19 07:22 69 17 102/60 05/05/19 06:51 36.5 C 69 16 93/54 L 05/05/19 06:37 36.8 C 62 16 90/50 L 05/05/19 06:15 36.3 C L 69 16 86/51 L 05/05/19 05:00 74 18 98/57 L 05/05/19 04:35 73 16 94/54 L 05/05/19 04:05 78 18 94/60 L 05/05/19 03:32 37.1 C 75 16 96/56 L 05/05/19 03:20 37.1 C 79 18 96/58 L 05/04/19 22:52 36.7 C 93 H 16 101/62 05/04/19 19:17 36.4 C L 64 19 05/04/19 17:16 36.7 C 79 16 97/60 L Pulse Ox 05/05/19 13:24 95 05/05/19 13:09 95 05/05/19 12:26 96 05/05/19 11:14 98 05/05/19 08:32 95 05/05/19 08:21 98 05/05/19 07:52 95 05/05/19 07:22 96 05/05/19 06:51 95 05/05/19 06:37 94 05/05/19 06:15 95 05/05/19 05:00 97 05/05/19 04:35 95 05/05/19 04:05 93 05/05/19 03:32 97 05/05/19 03:20 94 05/04/19 22:52 96 05/04/19 19:17 100 05/04/19 17:16 100 Transfer of Care Handoff Completed per policy Notes Mental Status: alert / awake / arousable and participated in evaluation Nausea / Vomiting: adequately controlled Pain: adequately controlled Airway Patency, RR, SpO2: stable & adequate BP & HR: stable & adequate Hydration State: stable & adequate Anesthetic Complications: no major complications apparent and Pt Satisfied with anesthetic care
--- NOTE | 2019-05-05 17:16 | Family Medicine Progress Note ---
Date of Service May 05, 2019 Assessment & Plan (1) RUQ abdominal mass: GI Bleed - -Positive Heme-occult in office today. -GI Consulted - Upper Endoscopy in AM tomorrow. -NPO After midnight -Famotidine 20mg IV BID ordered for gastric bleed protection. -Follow H and H and transfuse as needed. RUQ Abdominal Mass -Mass in RUQ abdomen measures 12x7cm. -GI Consulted. -CT w/ Abd/Pelv ordered. Anemia - acute blood loss -Hgb 8.2 in office and 7.6 now. -Type and Cross ordered for packed RBC if Hgb <7 PRN. -CBC ordered for AM -Home Iron on hold. Elevated transaminases - Follow CT scan results. Macular Degeneration -Hx of 9 years -Takes [place] 3 and Eye vitamins -Meds on hold. FEN/GI - No IV Fluids, Regular Diet - NPO after midnight, Replete Electrolytes as needed Code Status - Full code DVT Prophylaxis - Ambulate as tolerated, medical anticoagulation contraindicated - concern for GI Bleed. Dispo - PCU Telemetry (2) GI bleed: (3) Anemia: (4) Macular degeneration: Review of Systems Constitutional: + fatigue, + weakness and + weight loss (30 lbs weight loss over 1 year); no fever, no chills, no sweats and no increased appetite (Decreased appetite) Ear, Nose, Mouth, Throat: + dizziness; no ear pain, no tinnitus, no nasal trauma and no epistaxis Respiratory: + dyspnea on exertion; no cough, no chest congestion and no pain on inspiration Cardiovascular: + dyspnea, + dyspnea on exertion and + lightheadedness; no chest pain, no chest pain at rest, no dyspnea at rest, no palpitations, no syncope (However, near syncopal ) and no edema Gastrointestinal: + early satiety, + heartburn, + nausea (occasional after eating), + blood in stools (Dark loose stools, but no edward blood) and + problem reported (1 week history of abdominal mass in RUQ ); no abdominal pain, no vomiting, no coffee ground emesis, no hematemesis, no pain with swallowing, no dysphagia, no change in bowel habits, no constipation and no diarrhea/loose stools Musculoskeletal: + back pain (noted in the past, but not currently) and + muscle weakness (weakness noted when keeping her arms above her heads) Neurologic: + unsteadiness and + dizziness Physical Exam Constitutional: well developed and well nourished Eyes: normal visual garcía by confrontation, + anicteric sclerae and EOM intact bilaterally ENMT: Nose: no septum abnormality, no sinus tenderness, no epistaxis, face symmetric, no facial edema and no facial tenderness Neck: normal visual inspection and trachea midline; no anterior neck swelling and neck nontender Respiratory: normal respiratory effort; no respiratory distress, no labored breathing, does not use accessory muscles and no cough Auscultation: lungs clear to auscultation bilaterally Cardiovascular: Rate/Rhythm: regular rate and regular rhythm Heart Sounds: normal S1 and normal S2; no click, no murmur and no cardiac rub Vessels: dorsalis pedis pulses present; no JVD Extremities: no pedal edema Gastrointestinal (Abdomen): Inspection/Auscultation: + abdomen distended (Slight distension overlying patient's abdominal mass in the RUQ.) and normal bowel sounds; no abdominal wall ecchymosis Percussion/Palpation: + abdomen tender (TTP overlying abdominal mass 3/10 pain. ), + abdominal mass (RUQ mass measuring 12x7cm ) and + abdomen firm (Firm overlying abdominal mass in RUQ); no guarding Skin: no rashes, warm and dry normal turgor Neurologic: awake; not confused and not obtunded Psychiatric: A+Ox3, euthymic affect Orientation: alert and oriented x 3 Results & Data Vital Signs (Past 12 Hours) Vital Signs Temp Pulse Pulse Resp BP BP BP 05/05/19 15:18 36.8 C 80 18 105/64 05/05/19 13:40 64 18 97/56 L 05/05/19 13:24 70 18 109/57 L 05/05/19 13:09 65 18 92/57 L 05/05/19 12:26 36.6 C 73 18 94/56 L 05/05/19 11:14 36.6 C 75 16 89/53 L 05/05/19 08:32 36.8 C 65 16 91/51 L 05/05/19 08:21 67 18 91/51 L 05/05/19 07:52 69 16 97/63 L 05/05/19 07:22 69 17 102/60 05/05/19 06:51 36.5 C 69 16 93/54 L 05/05/19 06:37 36.8 C 62 16 90/50 L 05/05/19 06:15 36.3 C L 69 16 86/51 L Pulse Ox 05/05/19 15:18 99 05/05/19 13:40 99 05/05/19 13:24 95 05/05/19 13:09 95 05/05/19 12:26 96 05/05/19 11:14 98 05/05/19 08:32 95 05/05/19 08:21 98 05/05/19 07:52 95 05/05/19 07:22 96 05/05/19 06:51 95 05/05/19 06:37 94 05/05/19 06:15 95 PG Care Time/CCT Total # of Minutes Spent Total Time Spent with Patient: Total time spent is greater than 50% in coordination of care (as documented) at patient's floor/unit and/or counseling patient:
--- NOTE | 2019-05-05 19:48 | Discharge Summary ---
Date of Service May 05, 2019 Admission HPI Per Admitting Provider Patient is a pleasant 78 year old female with PMHx of Anemia, Brain tumor, and Macular Degeneration, that presents to the hospital today under direct admission after evaluation at outpatient clinic for GI Bleed, Abdominal Mass of recent discovery, and Symptomatic Anemia. Patient states that 2 weeks ago she had presented to the outpatient clinic with complaints of fatigue and after work up was found to have a microcytic anemia with a Hgb 7.4. She was prescribed iron pills that she has been taking as prescribed, but still continued to notice increasing presyncopal symptoms, balance disturbances, weakness, and fatigue. She states that since then she still is unable to climb a flight of stairs without becoming SOB and requiring to rest and also that she is unable to style her hair because holding her arms up high exhausts her. Patient also notes that as of 1 week ago, she noticed a firm abdominal mass (12cm L x 7cm W) located under her ribcage on the right. In the clinic today patient presented for f/u and had a Hgb of 8.2 and a positive heme-occult and was sent for admission for further evaluation. Patient reports occasional loose dark stools, but denies any edward blood. Admission Exam Per Admitting Provider Constitutional: well developed and well nourished Eyes: normal visual garcía by confrontation, + anicteric sclerae and EOM intact bilaterally ENMT: Nose: no septum abnormality, no sinus tenderness, no epistaxis, face symmetric, no facial edema and no facial tenderness Neck: normal visual inspection and trachea midline; no anterior neck swelling and neck nontender Respiratory: normal respiratory effort; no respiratory distress, no labored breathing, does not use accessory muscles and no cough Auscultation: lungs clear to auscultation bilaterally Cardiovascular: Rate/Rhythm: regular rate and regular rhythm Heart Sounds: normal S1 and normal S2; no click, no murmur and no cardiac rub Vessels: dorsa lis pedis pulses present; no JVD Extremities: no pedal edema Gastrointestinal (Abdomen): Inspection/Auscultation: + abdomen distended (Slight distension overlying patient's abdominal mass in the RUQ.) and normal bowel sounds; no abdominal wall ecchymosis Percussion/Palpation: + abdomen tender (TTP overlying abdominal mass 3/10 pain. ), + abdominal mass (RUQ mass measuring 12x7cm ) and + abdomen firm (Firm overlying abdominal mass in RUQ); no guarding Skin: no rashes, warm and dry normal turgor Neurologic: awake; not confused and not obtunded Psychiatric: A+Ox3, euthymic affect Orientation: alert and oriented x 3 Principal Diagnosis Abdominal Mass Discharge Exam Constitutional: well developed and well nourished Eyes: normal visual garcía by confrontation, + anicteric sclerae and EOM intact bilaterally ENMT: Nose: no septum abnormality, no sinus tenderness, no epistaxis, face symmetric, no facial edema and no facial tenderness Neck: normal visual inspection and trachea midline; no anterior neck swelling and neck nontender Respiratory: normal respiratory effort; no respiratory distress, no labored breathing, does not use accessory muscles and no cough Auscultation: lungs clear to auscultation bilaterally Cardiovascular: Rate/Rhythm: regular rate and regular rhythm Heart Sounds: normal S1 and normal S2; no click, no murmur and no cardiac rub Vessels: dorsalis pedis pulses present; no JVD Extremities: no pedal edema Gastrointestinal (Abdomen): Inspection/Auscultation: + abdomen distended (Slight distension overlying patient's abdominal mass in the RUQ.) and normal bowel sounds; no abdominal wall ecchymosis Percussion/Palpation: + abdomen tender (TTP overlying abdominal mass 3/10 pain. ), + abdominal mass (RUQ mass measuring 12x7cm ) and + abdomen firm (Firm overlying abdominal mass in RUQ); no guarding Skin: no rashes, warm and dry normal turgor Neurologic: awake; not confused and not obtunded Psychiatric: A+Ox3, euthymic affect Orientation: alert and oriented x 3 Discharge Data Allergies Allergy/AdvReac Type Severity Reaction Status Date / Time No Known Allergies Allergy Verified 05/05/19 12:21 Consultations 05/04/19 15:34 Consult Case Management - Discharge Planning Routine 05/04/19 15:39 Consult Gastroenterology Routine 05/05/19 06:59 Consult Oncology Routine 05/05/19 09:34 Consult Palliative Care Routine 05/05/19 17:38 Consult [facility] life sciences instructor Routine Procedures Performed Operation Date: 05/05/19 08:30 Actual Procedures p Esophagogastroduodenoscopy Dr Copeland(Left) - Gabriel Copeland Ordered Studies 05/04/19 16:28 CT abd pelvis oral and IV con Urgent Hospital Course (1) RUQ abdominal mass: 79 y/o F sent for direct admit for microcytic anemia, guiac positive stool and abdominal mass Underwent a CT Scan Ab/Pelv which revealed a 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 Overnight the patient's hemoglobin dropped below 7 and she was transfused with 2 units of PRBCs. The patient then had an EGD the following morning which was normal, and met with Oncology and Palliative care. She is currently stable and notes improvement in her fatigue and weakness after the transfusion. She is being discharged due to improved status of her fatigue and weakness and a ruled out upper GI bleed. Patient is to have a follow-up outpatient Colonoscopy on 05/08/19 and was instructed to complete bowel prep the night before. (2) GI bleed: (3) Anemia: (4) Macular degeneration: Total Time Total Time Spent Total Time Spent (In Minutes): <60 minutes Discharge Plan Discharge Items Patient Disposition: Home - Self-Care Reason For Visit: POSSIBLE GI BLEED Discharge Diagnosis: Abdominal Mass Condition: Good Discharge Goals: Decrease discomfort, Diagnostic testing and Improve function Activity: Resume your previous activity Non-emergency contact: Primary Care Provider and Economic Specialist Call non-emergency contact if: you have any medication questions and your symptoms worsen Follow-up/Referrals: Kristina Argueta PA-C [Primary Care Provider] - Diet: Regular Addtl Provider Instructions: Ms. Hernadez you were directly admitted to the hospital after noticing an abdominal mass, low hemoglobin levels, a positive stool blood test. You underwent a CT scan which revealed a mass in your transverse colon and multiple metastatic lesions in your liver. You also underwent an EGD (upper scope) which was normal. You were seen by GI, Oncology, and Palliative care specialists for your condition. You are feeling well after receiving 2 units of blood and are b eing discharged with the expectation of outpatient follow ups with a PCP and GI. -Please call GI on Wednesday at [phone] to set up an appointment for a Colonoscopy at our [facility] at [facility]. -Please complete your bowel preparation on Wednesday into Wednesday in preparation for having a Colonoscopy on Wednesday. -Bowel prep will be completed with Golytely instructions: -Golytely 8oz by mouth every 10 minutes until finishing 4L on Liam night, complete the other half on Wednesday morning before 9AM -Please follow up in outpatient with Dr. Jim Wilkinson on 05/10/19 at the [facility]. Our nursing navigator should be assisting you in setting up the appointment. If you have any questions, please call your PCP or GI specialist. If you have any worsening symptoms, please call or come to the ED. Prescriptions: New peg 3350-electrolytes [Golytely] 236-22.74-6.74 -5.86 gram Recon Soln 236 ml PO ONCE Qty: 4000 RF: 0 Continued [place]-3 capsule 2 cap PO BID RF: 0 calcium carbonate [Calcium 500] 500 mg calcium (1,250 mg) Tablet PO DAILY RF: 0 Stand-Alone Forms: [employer] [facility] [employer] Discharge Orders: Discharge Order (Routine); Ordered 05/05/19 Ordered By: Jim Wilkinson Admission Data Admit Date/Time: 05/04/19 15:20 Attending Provider: Gisella Romero Admit Provider: Gisella Romero Primary Care Provider: Kristina Argueta Other Providers: Osmany Lovett ; Anderson Dewey V ; Iliana Tam Service: Telemetry Other Interventions: Discharge Summary Assessment (RN) Last Done: 05/05/19 18:21 DC Date/Time DO NOT enter until pt leaves facility: 05/05/19 19:18 Supervising Physician Co-Signing Physician Notes Resident Physician Supervision Note: I independently interviewed and examined the patient and verified the ferrara history and physical, reviewed labs and image studies, discussed the case with the resident Dr. Wilkinson and agree with the findings and care plan. Time spent in discharge 35 min
[2019-05-07] MEDS ORDERED: LAVAGE SOLUTION 4000ML PO SCH (20:00)
== END 2019-05-05 19:18 | disposition home or self-care (01) | DRG 378 ==
LOC: 2S 15:20
DX: E88.09 Other disorders of plasma-protein metabolism, not elsewhere classified; D62 Acute posthemorrhagic anemia; C78.7 Secondary malignant neoplasm of liver and intrahepatic bile duct; K92.2 Gastrointestinal hemorrhage, unspecified; R19.01 Right upper quadrant abdominal swelling, mass and lump; H35.30 Unspecified macular degeneration; C18.9 Malignant neoplasm of colon, unspecified; Z79.899 Other long term (current) drug therapy; Z80.7 Family history of other malignant neoplasms of lymphoid, hematopoietic and related tissues; D50.9 Iron deficiency anemia, unspecified

== ENCOUNTER 2020-03-15 10:57 | Inpatient (IN) ==
[2020-03-15 11:34] LABS: Hematocrit (blood only) 26.2 % (37-47); Hemoglobin 9.2 g/dL (12.0-16.0); Mean Corpuscular Hemoglobin 29.5 pg (25-34); Mean Corpuscular Hgb Conc 35.1 g/dL (32-36); Mean Platelet Volume 8.3 fL (7.4-10.4); Platelet Count 176 K/uL (130-400); RDW Coefficient of Variation 19.3 % (11.5-14.5); RDW Standard Deviation 56.7 fL (36.4-46.3); Red Blood Count 3.12 M/uL (4.2-5.4); White Blood Count 14.97 K/uL (4.8-10.8)
--- NOTE | 2020-03-15 11:44 | XRay Report ---
XR chest 1V portable HISTORY: weakness COMPARISON: Chest 05/26/2019. FINDINGS: There are low lung volumes. Small bilateral pleural effusions and bibasilar densities. No e vidence for pulmonary edema. No pneumothorax. The heart is normal in size. Left jugular Port-A-Cath t erminates at the distal SVC. IMPRESSION: Interval development of small bilateral pleural effusions and bibasilar densities. ACT 112: Negative or not required by law. Electronically signed by: Avtar Guerra M.D. 03/15/2020 11:42 AM
[2020-03-15 11:54] LABS: Alanine Aminotransferase 40 U/L (12-78); Albumin Level 2.1 gm/dl (3.4-5.0); Aspartate Aminotransferase 101 U/L (15-37); BUN Creatinine Ratio 28.6 (10-20); Blood Urea Nitrogen 10 mg/dl (7-18); Calcium 7.8 mg/dl (8.5-10.1); Carbon Dioxide 24 mmol/L (21-32); Chloride 80 mmol/L (98-107); Est GFR (African American) 117.2; Est GFR (Non-African American) 101.1; Glucose 79 mg/dl (70-99); Magnesium 1.8 mg/dl (1.8-2.4); Potassium 4.6 mmol/L (3.5-5.1); Sodium 114 mmol/L (136-145)
[2020-03-15 11:55] LABS: INR 1.3 (0.9-1.1); Prothrombin Time 13.4 Seconds (9.0-12.0)
[2020-03-15 12:02] LABS: Albumin Globulin Ratio 0.6 (0.9-2); Alkaline Phosphatase 323 U/L (45-117); Basophils # (auto) 0.03 K/uL (0-0.2); Basophils % (auto) 0.2 %; Bilirubin,Total 1.2 mg/dl (0.2-1); Echinocytes 1+; Eosinophils # (auto) 0.02 K/uL (0-0.5); Eosinophils % (auto) 0.1 %; Globulin 3.4 gm/dl (2.5-4.0); Immature Granulocytes # (auto) 0.95 K/uL (0.00-0.02); Immature Granulocytes % (auto) 6.3 %; Lymphocytes # (auto) 0.72 K/uL (1.2-3.4); Lymphocytes % (auto) 4.8 %; Monocytes # (auto) 1.08 K/uL (0.11-0.59); Monocytes % (auto) 7.2 %; Neutrophils # (auto) 12.17 K/uL (1.4-6.5); Neutrophils % (auto) 81.4 %; Phosphorus 3.1 mg/dl (2.5-4.9); Schistocytes 1+; Tear Drop Cells 1+; Total Protein 5.5 gm/dl (6.4-8.2); Toxic Granulation 1+; Troponin I < 0.015 ng/ml (0-0.045)
[2020-03-15 12:21] LABS: Partial Thromboplastin Time 56.5 Seconds (21.0-31.0)
--- NOTE | 2020-03-15 12:21 | Emergency Department Note ---
Impression & Plan Acute hyponatremia, Weakness, Abdominal ascites, Colon cancer ED Provider Note Provider: Carson Gonzalez MD DATE OF SERVICE: 03/15/2020 CHIEF COMPLAINT: Weakness, abdominal swelling, lab abnormality HISTORY OF PRESENT ILLNESS:Patient is a 79-year-old female history of colorectal cancer presenting today complaining of a critical sodium level and increased abdominal swelling. Prior to arrival Dr. Champion of hematology oncology called and informed of the patient's imminent arrival. Evidently the patient had blood work done this morning show a critical sodium value of 112. Patient states that she undergoing chemotherapy for advanced age colorectal cancer. Relays that she has had worsening recent weakness. Decreased intake. Endorses some leg swelling and worsening abdominal swelling and distention. Denies edward abdominal pain or fever. Patient states that she is been falling more recently due to the weakness has difficulty walking. Several times in the bathroom last several days including last night she is falling to the ground including strike to the head. No LOC reported. Patient's not currently on blood thinners. Patient denies head pain at this time. Denies visual changes. Denies headache. Patient denies edward dizziness at this time. Denies significant vomiting or diarrhea symptoms. REVIEW OF SYSTEMS: A total of 10 review of systems was obtained and negative except as stated above in the HPI. PAST MEDICAL HISTORY: As noted above and including GI bleed, anemia MEDICATIONS: Reviewed her medication list SOCIAL HISTORY: Lives at home with PHYSICAL EXAM: GENERAL: alert and oriented in no acute distress on stretcher appears fatigued. Head: normocephalic and atraumatic EYES: No injection, discharge or icterus. PERRL NECK: Trachea midline. Supple. ENT: Mucous membranes pink and moist. LUNGS: Airway patent. No retractions. Breath sounds clear with good air entry bilaterally. HEART: Regular rate and rhythm. No chest wall tenderness with a left upper chest wall port ABDOMEN: Distended moderately firm without tenderness or peritoneal signs. SKIN: Acyanotic, warm, dry, without rashes EXTREMITIES: Patient with 2+ lower extremity swelling some trace weeping for the right lower extremity without erythema. No obvious deformity otherwise. NEUROLOGICAL: No focal deficits. No aphasia. No facial droop or slurred speech. Nonambulatory. EK bpm normal sinus rhythm. No PVC. No acute ST segment elevation or depression. QTC 457. Normal axis. CONTINUOUS CARDIAC MONITORING: was ordered and showed a heart rate of 93 bpm in normal sinus rhythm GCS 15. HOSPITAL COURSE: 1105 Patient was first seen and H&P performed. 1330 Patient reassessed and updated. Patient was resting comfortably in bed. Denied pain. Updated on findings and discussed plan for admission. Patient's laboratory studies and imaging reviewed. Differential includes Infection, dehydration, metabolic abnormality, hypo/hyperglycemia, electrolyte disturbance, anemia, hypoxia, cardiac sources, intracerebral event, toxicologic, neurologic, as well as other pathologies. IMPRESSION/MEDICAL DECISION MAKING: Patient presents for due to critical hyponatremia. Her oncologist called and she is been under chemotherapy treatment for her advanced age colorectal cancer with worsening abdominal ascites and lower extremity edema. Not on oxygen. Having worsening falls. Unable to ambulate now. Sodium confirmed to be critically low. Osmolality also low. Urine studies pending. Does have a leukocytosis of 14 of unclear etiology at this time. She denies any fevers. Procalcitonin in an indeterminate region. Chest x-ray without evidence of pneumonia. Does not appear meningitic. Stable anemia. PTT is elevated. Not on anticoagulation. Concern for possible liver involvement of her oncological process. Her oncologist recommended additional imaging especially given the falls this was completed. CT of her head and cervical spine was completed. CT of the chest abdomen pelvis with contrast was ordered. No evidence of troponin elevation. Mild LFT elevation. TSH elevated but free T4 within normal limits. Borderline hypomagnesemia. The abdomen not significantly tender to have a lower suspicion for SBP at this juncture. Again does not appear septic. Patient does have prior history by report of abdominal paracentesis on the with 4 L re moved. Patient requires admission given worsening condition and critical hyponatremia. Started on slow gentle half-normal saline IV fluid repletion. Discussed with the hospitalist. Order for paracentesis will be placed but I doubt again acute SBP at this juncture. CT of the head and neck without acute traumatic injury. CT of the chest with old rib fractures and question of some thoracic compression fractures that do look acute. Patient CT of the pelvis no acute injury although increase in large volume ascites and some enlargement of hepatic metastasis is noted with a large colon mass.'s urinalysis is without evidence of infection. Patient's been hemodynamically stable while here. Discussed with the patient the noted compression fractures noted on imaging but she is not having sign ificant discomfort. Discussed the recommendation for further evaluation management in the hospital given her critical hyponatremia and further treatment of her abdominal ascites. The elevated PTT is concerning with the liver metastasis for liver dysfunction likely the etiology of her ascites versus malignant ascites. She was in agreement. Discussed with the hospitalist. Will defer additional management of her hyponatremia to them at this time as her sodium is slightly higher than the earlier value. Care needs to be taken to prevent rapid overcorrection of sodium. DIAGNOSIS: Hyponatremia, weakness, colon cancer, abdominal ascites DISPOSITION: Hospitalist will evaluate Patient was agreeable with this plan. Critical Care I have personally spent 34 minutes of critical care time in the direct management of this patient. This includes bedside care, interpretation of diagnostic studies, and testing, discussion with consultants, patient, and family members, and other required patient management activities. These 34 minutes is in excess of all separately billable procedures. 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 Beliefs That Will Affect Care: None marital status: Current Living Situation: Spouse current occupational status: retired Other Information That Helps Us Care for You: No Feels Safe at Home: Yes Safety Concerns: Feels Safe At This Time Smoking Status: Never smoker Second Hand Exposure: No ; Hx Alcohol Use: No Hx Substance Use: No Allergies Allergies Allergy/AdvReac Type Severity Reaction Status Date / Time No Known Allergies Allergy Verified 03/15/20 12:36 Home Meds Home Medications Medication Instructions Recorded Confirmed calcium carbonate [Calcium 500] 500 mg PO QAM 05/04/19 03/15/20 omega-3 fatty acids 500 mg capsule 1,000 mg PO BID cap 05/25/19 03/15/20 vit A 7,160 unit-vit C 113 mg-vit 1 tab PO BID 05/25/19 03/15/20 W-fsxr-ovcmal-lutein 0.5 mg tablet ferrous sulfate 0 mg PO DAILY 03/15/20 03/15/20 Results & Data (ED) Vital Signs Vital Signs - 24 hr 03/15/20 11:00 03/15/20 11:47 03/15/20 12:30 Temperature 36.4 C L Temperature Source Oral Pulse Rate 93 H 93 H 91 H Pulse Rate from SpO2 Sensor 92 H Pulse Rhythm Regular Respiratory Rate 16 16 19 Respiratory Effort / Characteristics Non-Labored Respiratory Depth Normal Blood Pressure 101/65 113/65 Blood Pressure Mean 77 90 Pulse Oximetry 98 98 95 Oxygen Delivery Method Room Air Room Air Room Air Sepsis Recent Fever Within 48 Hours No Sepsis Action Taken by Nursing No Action Required 03/15/20 13:00 03/15/20 13:30 03/15/20 14:00 Temperature Temperature Source Pulse Rate 92 H 91 H 92 H Pulse Rate from SpO2 Sensor 93 H 94 H 93 H Pulse Rhythm Respiratory Rate 20 17 26 H Respiratory Effort / Characteristics Respiratory Depth Blood Pressure 113/72 116/75 128/87 Blood Pressure Mean 97 92 104 Pulse Oximetry 96 97 97 Oxygen Delivery Method Room Air Room Air Room Air Sepsis Recent Fever Within 48 Hours Sepsis Action Taken by Nursing 03/15/20 14:30 Temperature Temperature Source Pulse Rate 99 H Pulse Rate from SpO2 Sensor 98 H Pulse Rhythm Respiratory Rate 18 Respiratory Effort / Characteristics Respiratory Depth Blood Pressure 105/70 Blood Pressure Mean 84 Pulse Oximetry 95 Oxygen Delivery Method Room Air Sepsis Recent Fever Within 48 Hours Sepsis Action Taken by Nursing Laboratory Data Result diagrams: 03/15/20 11:20 03/15/20 11:20 Lab Results 03/15/20 03/15/20 03/15/20 Range/Units 11:20 11:20 11:20 WBC 14.97 H (4.8-10.8) K/uL RBC 3.12 L (4.2-5.4) M/uL Hgb 9.2 L (12.0-16.0) g/dL Hct 26.2 L (37-47) % MCV 84.0 (80-100) fL MCH 29.5 (25-34) pg MCHC 35.1 (32-36) g/dL RDW Std Deviation 56.7 H (36.4-46.3) fL RDW Coeff of Mitchell 19.3 H (11.5-14.5) % Plt Count 176 (130-400) K/uL MPV 8.3 (7.4-10.4) fL Immature Gran % (Auto) 6.3 % Neut % (Auto) 81.4 % Lymph % (Auto) 4.8 % [place] % (Auto) 7.2 % Eos % (Auto) 0.1 % Baso % (Auto) 0.2 % Immature Gran # (Auto) 0.95 H (0.00-0.02) K/uL Neut # (Auto) 12.17 H (1.4-6.5) K/uL Lymph # (Auto) 0.72 L (1.2-3.4) K/uL [place] # (Auto) 1.08 H (0.11-0.59) K/uL Eos # (Auto) 0.02 (0-0.5) K/uL Baso # (Auto) 0.03 (0-0.2) K/uL Toxic Granulation 1+ Tear Drop Cells 1+ Echinocytes 1+ Schistocytes 1+ PT 13.4 H (9.0-12.0) Seconds INR 1.3 H (0.9-1.1) APTT 56.5 H* (21.0-31.0) Seconds PTT Ratio 2.0 Sodium 114 L* (136-145) mmol/L Potassium 4.6 (3.5-5.1) mmol/L Chloride 80 L (98-107) mmol/L Carbon Dioxide 24 (21-32) mmol/L Anion Gap 10.0 (3-11) BUN 10 (7-18) mg/dl Creatinine 0.36 L (0.6-1.2) mg/dl Est Cr Clr Drug Dosing Not Reportable Est GFR ( Amer) 117.2 Est GFR (Non-Af Amer) 101.1 BUN/Creatinine Ratio 28.6 H (10-20) Glucose 79 (70-99) mg/dl Osmolality (280-300) mOsm/kg Calcium 7.8 L (8.5-10.1) mg/dl Phosphorus 3.1 (2.5-4.9) mg/dl Magnesium 1.8 (1.8-2.4) mg/dl Total Bilirubin 1.2 H (0.2-1) mg/dl AST 101 H (15-37) U/L ALT 40 (12-78) U/L Alkaline Phosphatase 323 H (45-117) U/L Troponin I < 0.015 (0-0.045) ng/ml Total Protein 5.5 L (6.4-8.2) gm/dl Albumin 2.1 L (3.4-5.0) gm/dl Globulin 3.4 (2.5-4.0) gm/dl Albumin/Globulin Ratio 0.6 L (0.9-2) Procalcitonin (0-0.5) ng/ml TSH 5.690 H (0.300-4.500) uIu/ml Free T4 1.17 (0.8-1.6) ng/dl Urine Color Urine Appearance (Clear) Urine pH (4.5-7.5) Ur Specific [place] (1.000-1.030) Urine Protein (Negative) Urine Glucose (UA) (Negative) Urine Ketones (Negative) Urine Blood (Negative) Urine Nitrite (Negative) Urine Bilirubin (Negative) Urine Urobilinogen (Negative) Ur Leukocyte Esterase (Negative) Urine WBC (Auto) (0-5) /hpf Urine RBC (Auto) (0-4) /hpf U Hyaline Cast (Auto) (0-5) /lpf U Epithel Cells (Auto) (0-5) /lpf Urine Bacteria (Auto) (Negative) Urine Crystals Calcium Oxalate Crystal (None Prsent) Urine Mucus (None Prsent) Urine Osmolality (500-800) mOsm/kg Ur Random Sodium mmol/L 03/15/20 03/15/20 03/15/20 Range/Units 11:20 11:20 13:15 WBC (4.8-10.8) K/uL RBC (4.2-5.4) M/uL Hgb (12.0-16.0) g/dL Hct (37-47) % MCV (80-100) fL MCH (25-34) pg MCHC (32-36) g/dL RDW Std Deviation (36.4-46.3) fL RDW Coeff of Mitchell (11.5-14.5) % Plt Count (130-400) K/uL MPV (7.4-10.4) fL Immature Gran % (Auto) % Neut % (Auto) % Lymph % (Auto) % [place] % (Auto) % Eos % (Auto) % Baso % (Auto) % Immature Gran # (Auto) (0.00-0.02) K/uL Neut # (Auto) (1.4-6.5) K/uL Lymph # (Auto) (1.2-3.4) K/uL [place] # (Auto) (0.11-0.59) K/uL Eos # (Auto) (0-0.5) K/uL Baso # (Auto) (0-0.2) K/uL Toxic Granulation Tear Drop Cells Echinocytes Schistocytes PT (9.0-12.0) Seconds INR (0.9-1.1) APTT (21.0-31.0) Seconds PTT Ratio Sodium (136-145) mmol/L Potassium (3.5-5.1) mmol/L Chloride (98-107) mmol/L Carbon Dioxide (21-32) mmol/L Anion Gap (3-11) BUN (7-18) mg/dl Creatinine (0.6-1.2) mg/dl Est Cr Clr Drug Dosing Est GFR ( Amer) Est GFR (Non-Af Amer) BUN/Creatinine Ratio (10-20) Glucose (70-99) mg/dl Osmolality 235 L* (280-300) mOsm/kg Calcium (8.5-10.1) mg/dl Phosphorus (2.5-4.9) mg/dl Magnesium (1.8-2.4) mg/dl Total Bilirubin (0.2-1) mg/dl AST (15-37) U/L ALT (12-78) U/L Alkaline Phosphatase (45-117) U/L Troponin I (0-0.045) ng/ml Total Protein (6.4-8.2) gm/dl Albumin (3.4-5.0) gm/dl Globulin (2.5-4.0) gm/dl Albumin/Globulin Ratio (0.9-2) Procalcitonin 0.47 (0-0.5) ng/ml TSH (0.300-4.500) uIu/ml Free T4 (0.8-1.6) ng/dl Urine Color Dark Yellow Urine Appearance Cloudy A (Clear) Urine pH 5.5 (4.5-7.5) Ur Specific [place] 1.026 (1.000-1.030) Urine Protein Negative (Negative) Urine Glucose (UA) Negative (Negative) Urine Ketones Trace H (Negative) Urine Blood Negative (Negative) Urine Nitrite Negative (Negative) Urine Bilirubin Negative (Negative) Urine Urobilinogen Negative (Negative) Ur Leukocyte Esterase Trace H (Negative) Urine WBC (Auto) 1-5 (0-5) /hpf Urine RBC (Auto) 0-4 (0-4) /hpf U Hyaline Cast (Auto) 5-10 H (0-5) /lpf U Epithel Cells (Auto) 20-30 H (0-5) /lpf Urine Bacteria (Auto) Negative (Negative) Urine Crystals Not Reportable Calcium Oxalate Crystal Present A (None Prsent) Urine Mucus Present A (None Prsent) Urine Osmolality (500-800) mOsm/kg Ur Random Sodium mmol/L 03/15/20 03/15/20 Range/Units 13:15 13:15 WBC (4.8-10.8) K/uL RBC (4.2-5.4) M/uL Hgb (12.0-16.0) g/dL Hct (37-47) % MCV (80-100) fL MCH (25-34) pg MCHC (32-36) g/dL RDW Std Deviation (36.4-46.3) fL RDW Coeff of Mitchell (11.5-14.5) % Plt Count (130-400) K/uL MPV (7.4-10.4) fL Immature Gran % (Auto) % Neut % (Auto) % Lymph % (Auto) % [place] % (Auto) % Eos % (Auto) % Baso % (Auto) % Immature Gran # (Auto) (0.00-0.02) K/uL Neut # (Auto) (1.4-6.5) K/uL Lymph # (Auto) (1.2-3.4) K/uL [place] # (Auto) (0.11-0.59) K/uL Eos # (Auto) (0-0.5) K/uL Baso # (Auto) (0-0.2) K/uL Toxic Granulation Tear Drop Cells Echinocytes Schistocytes PT (9.0-12.0) Seconds INR (0.9-1.1) APTT (21.0-31.0) Seconds PTT Ratio Sodium (136-145) mmol/L Potassium (3.5-5.1) mmol/L Chloride (98-107) mmol/L Carbon Dioxide (21-32) mmol/L Anion Gap (3-11) BUN (7-18) mg/dl Creatinine (0.6-1.2) mg/dl Est Cr Clr Drug Dosing Est GFR ( Amer) Est GFR (Non-Af Amer) BUN/Creatinine Ratio (10-20) Glucose (70-99) mg/dl Osmolality (280-300) mOsm/kg Calcium (8.5-10.1) mg/dl Phosphorus (2.5-4.9) mg/dl Magnesium (1.8-2.4) mg/dl Total Bilirubin (0.2-1) mg/dl AST (15-37) U/L ALT (12-78) U/L Alkaline Phosphatase (45-117) U/L Troponin I (0-0.045) ng/ml Total Protein (6.4-8.2) gm/dl Albumin (3.4-5.0) gm/dl Globulin (2.5-4.0) gm/dl Albumin/Globulin Ratio (0.9-2) Procalcitonin (0-0.5) ng/ml TSH (0.300-4.500) uIu/ml Free T4 (0.8-1.6) ng/dl Urine Color Urine Appearance (Clear) Urine pH (4.5-7.5) Ur Specific [place] (1.000-1.030) Urine Protein (Negative) Urine Glucose (UA) (Negative) Urine Ketones (Negative) Urine Blood (Negative) Urine Nitrite (Negative) Urine Bilirubin (Negative) Urine Urobilinogen (Negative) Ur Leukocyte Esterase (Negative) Urine WBC (Auto) (0-5) /hpf Urine RBC (Auto) (0-4) /hpf U Hyaline Cast (Auto) (0-5) /lpf U Epithel Cells (Auto) (0-5) /lpf Urine Bacteria (Auto) (Negative) Urine Crystals Calcium Oxalate Crystal (None Prsent) Urine Mucus (None Prsent) Urine Osmolality 451 L (500-800) mOsm/kg Ur Random Sodium 9 mmol/L Administered Medications Ioversol (Optiray 320 100ml) 95 ml IV ONCE PRN PRN Reason: Interaction Checking Stop: 03/19/20 12:24 Last Admin: 03/15/20 12:25 Dose: 95 ml Documented by: [id number] Discharge Plan Visit Data Chief Complaint: Referred by Doctor Stated Complaint: CRITICAL SODIUM LEVEL, ABD ASCITES ED Provider: Carson Gonzalez Discharge Problem: Acute hyponatremia, Weakness, Abdominal ascites, Colon cancer Forms Stand Alone Forms: My [facility] Prescriptions Prescriptions: No Action omega-3 fatty acids 500 mg capsule 1,000 mg PO BID RF: 0 Ocular Vitamins 7,160 unit- 113 mg-0.5 mg tablet 1 tab PO BID RF: 0 calcium carbonate [Calcium 500] 500 mg calcium (1,250 mg) Tablet 500 mg PO QAM RF: 0 ferrous sulfate 134 mg (27 mg iron) Tablet 0 mg PO DAILY RF: 0 Discharge Problem: Abdominal ascites Qualifiers: Ascites type: other type Qualified Code(s): R18.8 - Other ascites Colon cancer Qualifiers: Colon location: splenic flexure Qualified Code(s): 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
[2020-03-15 12:22] LABS: T4 Free Thyroxine 1.17 ng/dl (0.8-1.6)
[2020-03-15] MEDS ORDERED: IOVERSOL 100ml IV PRN (12:25)
--- NOTE | 2020-03-15 12:38 | CT Scan Report ---
CT OF THE CERVICAL SPINE CLINICAL HISTORY: Neck pain status post trauma COMPARISON STUDY: No previous studies for comparison. CT DOSE: 2323.41 mGy.cm TECHNIQUE: CT scan of the cervical spine was performed from the skull base to the thoracic inlet. Lalita ges are reviewed in the axial, sagittal, and coronal planes. IV contrast was not administered for thi s examination. A dose lowering technique was utilized adhering to the principles of ALARA. FINDINGS: The visualized portions of the lung apices reveal no evidence of pneumothorax. Note is made of a left IJ catheter The prevertebral soft tissues are normal. No fractures or subluxations are visualized. There are multilevel degenerative changes IMPRESSION: No evidence of acute fracture or traumatic subluxation. ACT 112: Negative or not required by law. Electronically signed by: Ilya Robin M.D. 03/15/2020 12:37 PM
--- NOTE | 2020-03-15 12:40 | CT Scan Report ---
HEAD CT NONCONTRAST CT DOSE: HISTORY: fall, weakness, Cancer TECHNIQUE: Multiaxial CT images of the head were performed without the use of intravenous contrast. A utomated exposure control was utilized for this study. A dose lowering technique was utilized adheri ng to the principles of ALARA. Comparison: Brain MRI 06/04/2015. Findings: The paranasal sinuses and mastoid air cells are clear. The calvarium and skull base are int act. There is no hematoma, midline shift, or acute infarct. White matter hypodensity is nonspecific b ut suggestive of microvascular ischemic change. The ventricles and sulci demonstrate mild age-related involutional changes. Stable 1.9 cm posterior midline calcified meningioma. Impression: No significant change compared to the prior study. No acute intracranial abnormality. ACT 112: Negative or not required by law. Electronically signed by: Avtar Guerra M.D. 03/15/2020 12:38 PM
--- NOTE | 2020-03-15 12:47 | CT Scan Report ---
CT abd pelvis IV con only CLINICAL HISTORY: cancer, fall, weakness, ascites COMPARISON STUDY: 01/01/2020 TECHNIQUE: The patient was scanned in a dynamic helical fashion during intravenous administration of 95 cc of Optiray 320. A dose lowering technique was utilized adhering to the principles of ALARA. CT DOSE: FINDINGS: Lower chest: There are small bilateral pleural effusions. There are basilar atelectatic changes. Liver: There are large space-occupying hepatic masses. The right hepatic lobe mass measures 13 cm. Th is is slightly larger than on the preceding study. The left hepatic lobe mass measures 10 cm. This is minimally larger than on the preceding study. Gallbladder: Unremarkable. Spleen: Normal in size and attenuation. Pancreas: Unremarkable. Adrenal glands: Unremarkable. Kidneys: There is an 8 cm right renal cyst. There is no CT evidence of acute renal injury Bowel: There are no transition zones to indicate bowel obstruction. There is a large necrotic mass in volving the colon at the level of the splenic flexure measuring 7 cm. This is slightly larger on the preceding study. Peritoneum: There is a large volume of ascites. No free intraperitoneal air is visualized. Vasculature: The abdominal aorta is normal in course and caliber. Adenopathy: None. Pelvic viscera: The bladder, and pelvic viscera are unremarkable. Skeletal structures: No destructive osseous lesions are visualized. There are old rib fractures. No a cute fractures are visualized. IMPRESSION: 1. No evidence of acute intra-abdominal or pelvic injury. 2. Increasing large volume of ascites 3. Slight enlargement in the large hepatic metastasis 4. Slight enlargement in the colonic mass at the level of the splenic flexure ACT 112: Negative or not required by law. Electronically signed by: Ilya Robin M.D. 03/15/2020 12:46 PM
--- NOTE | 2020-03-15 12:50 | CT Scan Report ---
CT OF THE CHEST WITH IV CONTRAST CLINICAL HISTORY: fall, weakness, Cancer COMPARISON STUDY: Chest CT January 01, 2020. Chest radiograph performed earlier today. TECHNIQUE: Following IV administration of 95 mL of Optiray-320, helical axial images of the chest we re obtained. Sagittal and coronal reconstructions were viewed as well as maximal intensity projectio ns on an independent 3-D workstation. Automated exposure control was utilized for the study. A dose lowering technique was utilized adhering to the principles of ALARA. FINDINGS: There is no evidence for traumatic injury to the thoracic aorta. A left internal jugular I [id number] is noted. The heart is mildly enlarged. There is no pericardial effusion. There is no pn eumothorax. Small bilateral pleural effusions have developed since exam of January 01, 2020. Associated airspace opacities reflect atelectasis. There is no pulmonary contusion. A 7 mm right upper lobe nod ule on image 55 of 246 has increased in size since CT of January 01, 2016 when it measured 6 mm. Centra l airways are patent. Subtle mild compression deformities of the superior endplates of T3 and T4 new since prior CT. There are healing bilateral rib fractures. No acute rib fractures are noted. There is no thoracic lymphadenopathy. A large right hepatic lobe mass, measuring approximately 13.6 cm has in creased in size since CT of January 01, 2020. An adjacent 5.4 cm left hepatic lobe mass has also increa sed in size. The CT of the abdomen and pelvis will be reported separately. Abdominal ascites is incre ased. IMPRESSION: 1. Subtle mild compression deformities of the superior endplates of T3 and T4 which are new since CT of January 01, 2020 and probably acute. 2. Bilateral rib fractures. No acute rib fractures. No pneumothorax. 3. Interval small bilateral pleural effusions. 4. Slight increase in size of a 7 mm right upper lobe pulmonary nodule which may reflect a metastasis . 5. Progression of hepatic metastasis and abdominal ascites, better depicted on the CT of the abdomen and pelvis. ACT 112: Negative or not required by law. Electronically signed by: Lavelle Borges M.D. 03/15/2020 12:49 PM
[2020-03-15 13:34] LABS: Appearance Urine Cloudy (Clear); Bacteria Urine Automated Negative (Negative); Blood Urine Negative (Negative); Color Urine Dark Yellow; Epithelial Cell Urine Auto 20-30 /lpf (0-5); Glucose Urine UA Negative (Negative); Ketones Urine Trace (Negative); Leukocyte Esterase Urine Trace (Negative); Nitrite Urine Negative (Negative); Protein Urine Negative (Negative); Specific Gravity Urine 1.026 (1.000-1.030); Urobilinogen Urine Negative (Negative); pH Urine 5.5 (4.5-7.5)
[2020-03-15 13:37] LABS: Bilirubin Urine Negative (Negative); Ictotest Urine Negative (Negative)
[2020-03-15 14:03] LABS: Mucus Urine Present (None Prsent)
[2020-03-15 14:06] LABS: Calcium Oxalate Crystals Urine Present (None Prsent)
[2020-03-15 14:08] LABS: RBC Urine Automated 0-4 /hpf (0-4)
--- NOTE | 2020-03-15 15:10 | History & Physical Report ---
Date of Service March 15, 2020 Assessment & Plan (1) Acute hyponatremia: Moderate symptoms of fatigue, lethargy, nausea, dizziness and gait disturbance likely related to this. No seizures. Secondary to suspected liver failure and hypervolemic state in the setting of metastatic colon cancer. Reduced from 127 to 112 in 9 days, although not necessarily acute in the last 48 hours, given moderate symptoms would suggest it was relatively gradual during that time. Appears to already be slowly correcting therefore will currently hold off treatment with hypertonic saline or lasix at this time and serially trend Na. Fluid restrict 1500ml Aim for 8mmol in 24 hours. (2) Abdominal ascites: Plan for therapeutic and diagnostic purposes. Low likelihood of SBP given no abdominal pain or fever but since WBC elevated will send to cell count and culture. Plan to remove 4L given current low normal BP and urine Na suggests ability that lasix will be successful although I am unclear why she was not already taking this. Discussed with ultrasound and Paracentesis to be performed tomorrow. (3) Weakness: Secondary to hyponatremia above (4) Metastatic colon cancer to liver: Patient reports planning on third round of chemotherapy on Wednesday but likely will be delayed due to current hyponatremia Enlargement of colonic mass and hepatic masses on CT. Possible pulmonary met on lung. Compression fractures. Given recurrent ascites with enlarging malignancies and now severe hyponatremia her prognosis appears to be very poor. Consult oncology to further discuss goals of care given poor prognosis - unclear how aggressive management should be at this stage. Goals of discussion regarding DNR in the event of a cardiac arrest took 20 minutes during admission. (5) Severe protein-calorie malnutrition: Boost, sales teacher consult (6) Loss of appetite: Re-evaluate following paracentesis (7) DVT prophylaxis: Plan on chemical VTE prophylaxis after paracentesis Admission and Anticipated Discharge Date Admission Date: 03/15/2020 History of Present Illness Chief Complaint: Generalized weakness, fatigue. Hyponatremia on labs from cancer center Primary Care Provider: NO PCP Alma Hernadez is an 79 year old female with an unfortunate history of metastatic colon cancer to her liver who presents to the ER after outpatient labs at the Cancer Center showed severe hyponatremia at 112 mmol/L. She notes in the last 2 days feeling more acutely dizzy, very weak and off balance. No seizures but she has fallen twice without any injuries due to those falls. She also has worsening ascites which has been gradually increasing since therapeutic paracentesis performed on February 22 with 4L taken off at that time. Currently her ascites is the worst it has been and she has not been eating or drinking well for the last week. She has lost her appetite but no dysphagia or odynophagia. She denies any nausea, vomiting, fevers, chills, abdominal pain or recent change in bowel habit. Although notes since starting current round of chemotherapy her bowels are loose and unpredictable and black (since starting iron supplementation). Allergies Allergy/AdvReac Type Severity Reaction Status Date / Time No Known Allergies Allergy Verified 03/15/20 12:36 Home Medications Home Medications Medication Instructions Recorded Confirmed Type calcium carbonate [Calcium 500] 500 mg PO QAM 05/04/19 03/15/20 History omega-3 fatty acids 500 mg capsule 1,000 mg PO BID cap 05/25/19 03/15/20 History vit A 7,160 unit-vit C 113 mg-vit 1 tab PO BID 05/25/19 03/15/20 History Z-mklh-pstbhw-lutein 0.5 mg tablet ferrous sulfate 0 mg PO DAILY 03/15/20 03/15/20 History Past Med/Surg History Medical History Brain tumor SEVERAL YEARS AGO AND MONITORING AND HAS NOT CHANGED Colorectal cancer WILL BE STARTING CHEMO Loss of appetite Macular degeneration Metastatic colon cancer to liver Peripheral edema Severe protein-calorie malnutrition Surgical History H/O colonoscopy Family History Brother Cancer Father Stroke Other No family history of bleeding disorder Social History Preferred Language: Belgian Communication Ability: Effective Oral Health Therapist Required: No Beliefs That Will Affect Care: None marital status: Current Living Situation: Spouse current occupational status: retired Other Information That Helps Us Care for You: No Feels Safe at Home: Yes Safety Concerns: Feels Safe At This Time Smoking Status: Never smoker Second Hand Exposure: No ; Hx Alcohol Use: No Hx Substance Use: No Review of Systems Review of Systems: All systems reviewed & are unremarkable except as noted in HPI & below Physical Exam Constitutional: well developed, + cachectic and + frail appearing; + not well nourished and no acute distress Eyes: + anicteric sclerae; normal pupil size ENMT: Mouth: + dry oral mucous membranes Neck: trachea midline, no thyromegaly Respiratory: normal respiratory effort, lungs clear to auscultation (shallow) Cardiovascular: Rate/Rhythm: regular rhythm and + tachycardic Heart Sounds: + murmur Vessels: + JVD Extremities: normal capillary refill and + pedal edema Gastrointestinal (Abdomen): Inspection/Auscultation: + abdomen distended and normal bowel sounds Percussion/Palpation: + abdomen rigid; abdomen nontender and no guarding Skin: no rashes, warm and dry Neurologic: moves all extremities (generally weak b/l) Psychiatric: Orientation: alert and oriented x 3 Affect: + flat affect Genitourinary: no CVA tenderness Results & Data Results & Data ([facility]) Vital Signs (Past 12 Hours) Vital Signs Temp Pulse Resp BP Pulse Ox 03/15/20 14:30 99 H 18 105/70 95 03/15/20 14:00 92 H 26 H 128/87 97 03/15/20 13:30 91 H 17 116/75 97 03/15/20 13:00 92 H 20 113/72 96 03/15/20 12:30 91 H 19 113/65 95 03/15/20 11:47 93 H 16 98 03/15/20 11:00 36.4 C L 93 H 16 101/[address] abd pelvis IV con only IMPRESSION: 1. No evidence of acute intra-abdominal or pelvic injury. 2. Increasing large volume of ascites 3. Slight enlargement in the large hepatic metastasis 4. Slight enlargement in the colonic mass at the level of the splenic flexure CT OF THE CERVICAL SPINE IMPRESSION: No evidence of acute fracture or traumatic subluxation. XR chest 1V portable IMPRESSION: Interval development of small bilateral pleural effusions and bibasilar densities HEAD CT NONCONTRAST Impression: No significant change compared to the prior study. No acute intracranial abnormality. ECG Indication: altered mental status Rate (beats per minute): 92 Rhythm: normal sinus Comparison ECG Date: from (05/25/2019) Change: no significant change Code Status & VTE Plan Code Status After discussion with patient, and bedside and daughter on phone. Decided not for resuscitation in the event of a cardiac arrest but she wishes intubation in the setting of respiratory arrest and all other treatments outside of a cardiac arrest. Prolonged discussion and appears to be the first time she has discussed this with her family. VTE Prophylaxis Plan VTE Prophylaxis will be ordered: Yes PG Care Time/CCT Total # of Minutes Spent Total Time Spent with Patient: Total time spent is greater than 50% in coordination of care (as documented) at patient's floor/unit and/or counseling patient: Coding Level of Care Code 40473 Initial Inpt Care Lvl 3 Diagnoses Acute hyponatremia E87.1 Abdominal ascites R18.8 Ascites type: other type Weakness R53.1 Metastatic colon cancer to liver C18.9; C78.7 Severe protein-calorie malnutrition E43 Loss of appetite R63.0 DVT prophylaxis Z29.9 (1) Abdominal ascites Ascites type: other type Qualified Code(s): R18.8 - Other ascites
[2020-03-15 18:12] LABS: BUN Creatinine Ratio 31.8 (10-20); Calcium 7.6 mg/dl (8.5-10.1); Creatinine Clr Calc Pharmacy 98.7 ml/min; Est GFR (African American) 121.8; Est GFR (Non-African American) 105.1; Potassium 5.1 mmol/L (3.5-5.1)
[2020-03-15] MEDS: CEROVITE ADV FORMULA TAB PO SCH (20:04)
[2020-03-15] MEDS: OMEGA-3 (PURIFIED FISH OIL) 1 GM CAP PO SCH (20:05)
[2020-03-15] MEDS ORDERED: ONDANSETRON INJ 2 MG/ML 2 ML VIAL IV PRN (21:13)
[2020-03-15] MEDS ORDERED: ALUMINUM/MAGNESIUM SUSP 30 ML UDC PO PRN (21:13)
[2020-03-15 23:39] LABS: BUN Creatinine Ratio 25.9 (10-20); Creatinine Clr Calc Pharmacy 77.1 ml/min; Est GFR (African American) 112.3; Est GFR (Non-African American) 96.9; Potassium 4.8 mmol/L (3.5-5.1)
[2020-03-15] MEDS ORDERED: FUROSEMIDE 20 MG in SYRINGE 0 ML IV ONE (23:44)
[2020-03-16 03:13] LABS: BUN Creatinine Ratio 24.9 (10-20); Calcium 7.8 mg/dl (8.5-10.1); Est GFR (African American) 114.2; Est GFR (Non-African American) 98.5; Potassium 4.6 mmol/L (3.5-5.1)
--- NOTE | 2020-03-16 06:23 | Electrocardiogram Report ---
Test Reason : Blood Pressure : / mmHG Vent. Rate : 092 BPM Atrial Rate : 092 BPM P-R Int : 164 ms QRS Dur : 078 ms QT Int : 370 ms P-R-T Axes : 050 013 023 degrees QTc Int : 457 ms Normal sinus rhythm Cannot rule out Anterior infarct , age undetermined Abnormal ECG When compared with ECG of 25-MAY-2019 14:43, T wave amplitude has decreased in Anterolateral leads Confirmed by Jony Mederos ([id number]) on 03/16/2020 6:22:43 AM Referred By: REFERRED SELF Confirmed By:Jony Mederos
[2020-03-16 06:45] LABS: Hematocrit (blood only) 25.4 % (37-47); Hemoglobin 8.9 g/dL (12.0-16.0); Mean Corpuscular Hemoglobin 29.4 pg (25-34); Mean Corpuscular Volume 83.8 fL (80-100); Mean Platelet Volume 8.2 fL (7.4-10.4); Platelet Count 138 K/uL (130-400); RDW Coefficient of Variation 19.4 % (11.5-14.5); RDW Standard Deviation 56.8 fL (36.4-46.3); Red Blood Count 3.03 M/uL (4.2-5.4); White Blood Count 13.72 K/uL (4.8-10.8)
[2020-03-16 07:10] LABS: Albumin Level 1.9 gm/dl (3.4-5.0); BUN Creatinine Ratio 26.5 (10-20); Bilirubin Direct 0.8 mg/dl (0-0.2); Bilirubin,Total 1.1 mg/dl (0.2-1); Calcium 7.8 mg/dl (8.5-10.1); Creatinine Clr Calc Pharmacy 116.6 ml/min; Est GFR (African American) 114.2; Est GFR (Non-African American) 98.5; Potassium 4.3 mmol/L (3.5-5.1); Total Protein 5.1 gm/dl (6.4-8.2)
[2020-03-16] MEDS ORDERED: SODIUM CHLORIDE 3 % 50 ML IV ONE ×3 (07:30→15:15)
[2020-03-16 07:48] LABS: Anisocytosis Present; Basophils # (auto) 0.02 K/uL (0-0.2); Basophils % (auto) 0.1 %; Eosinophils # (auto) 0.04 K/uL (0-0.5); Eosinophils % (auto) 0.3 %; Immature Granulocytes # (auto) 0.76 K/uL (0.00-0.02); Immature Granulocytes % (auto) 5.5 %; Lymphocytes # (auto) 0.82 K/uL (1.2-3.4); Neutrophils # (auto) 10.98 K/uL (1.4-6.5); Neutrophils % (auto) 80.1 %; Toxic Granulation 1+
[2020-03-16] MEDS: CEROVITE ADV FORMULA TAB PO SCH ×2 (07:56→19:42)
[2020-03-16] MEDS: CALCIUM CARBONATE 1250MG TAB PO SCH (07:56)
[2020-03-16] MEDS: OMEGA-3 (PURIFIED FISH OIL) 1 GM CAP PO SCH ×2 (07:56→19:42)
--- NOTE | 2020-03-16 09:53 | Nephrology Consultation ---
Date of Consultation March 16, 2020 Assessment & Plan (1) Chronic hyponatremia: * Severe hyponatremia. This has been chronic and progressive. Clinically suspect hyponatremia has been related to underlying colon cancer, metastatic liver disease and Irenotecan therapy * Agree w/ 3% saline administration. Target is to correct serum sodium by 6 - 8 mmol/24 hours * Will order stat PRP at 10 am to assess whether further bolus of 3% saline needed this am * Once serum sodium > 120 mmol/L consider changing to oral NaCl supplement (2) Metastatic colon cancer to liver: * Oncology has been consulted * Patient scheduled for paracentesis History of Present Illness Reason for Consultation: Hyponatremia Attending Physician: Manjeet Fernandez, History of Present Illness Mrs. Hernadez is an 79 year old white female who is seen at the request of Dr. Myrick for evaluation of hyponatremia. This was ordered as a routine consultation. Medical records in the EMR were reviewed this morning and are summarized as follows: Mrs. Hernadez was diagnosed w/ colon cancer with metast asis to the liver 05/22. She received FOLFOX and Avastin but required transition to FOLFIRI due to reaction to Oxaliplatin. Her medical course was complicated by chronic asymptomatic hyponatremia. According to Oncology records serum sodium had gradually decreased from 131 to 128 09/21 to 11/23. Recently Ms. Hernadez has developed progressive abdominal ascites and weakness. She had fallen several times at home. When evaluated by Oncology serum sodium was 113 mmol/L. Admission to the hospital was advised. In the ED patient was felt to be volume contracted. Hydration was provided w/ 0.45 NS and patient was admitted to the hospitalist service. Serum sodium has remained essentially unchanged overnight. Mrs. Hernadez remains very weak. 50 cc 3% saline was administered by the hospitalist service this morning. Mrs. Hernadez's medical history is significant for metastatic colon cancer, chronic hyponatremia, vitamin D deficiency, macular degeneration, anemia. No h/o thyroid disorder, adrenal insufficiency, CHF, thiazide or SSRI use. Allergies Allergy/AdvReac Type Severity Reaction Status Date / Time No Known Allergies Allergy Verified 03/15/20 12:36 Home Medications Home Medications Medication Instructions Recorded Confirmed Type calcium carbonate [Calcium 500] 500 mg PO QAM 05/04/19 03/15/20 History omega-3 fatty acids 500 mg capsule 1,000 mg PO BID cap 05/25/19 03/15/20 History vit A 7,160 unit-vit C 113 mg-vit 1 tab PO BID 05/25/19 03/15/20 History Q-orog-mtcqbz-lutein 0.5 mg tablet ferrous sulfate 0 mg PO DAILY 03/15/20 03/15/20 History Patient History Medical History Brain tumor SEVERAL YEARS AGO AND MONITORING AND HAS NOT CHANGED Colorectal cancer WILL BE STARTING CHEMO Loss of appetite Macular degeneration Metastatic colon cancer to liver Peripheral edema Severe protein-calorie malnutrition Surgical History H/O colonoscopy Family History Brother Cancer Father Stroke Other No family history of bleeding disorder Social History Preferred Language: Wolof Communication Ability: Effective Compliance Auditor Required: No Beliefs That Will Affect Care: None marital status: Current Living Situation: Spouse current occupational status: retired Other Information That Helps Us Care for You: No Feels Safe at Home: Yes Safety Concerns: Feels Safe At This Time Smoking Status: Never smoker Second Hand Exposure: No ; Hx Alcohol Use: No Hx Substance Use: No Review of Systems Constitutional: no fever and no weakness Eyes: no problem reported Ear, Nose, Mouth, Throat: no problem reported Respiratory: no cough and no dyspnea Cardiovascular: + edema; no chest pain and no palpitations Gastrointestinal: + problem reported (+ abdominal distention); no abdominal pain, no nausea, no vomiting and no diarrhea/loose stools Genitourinary: no dysuria and no hematuria Musculoskeletal: no back pain Integumentary: no rash Neurologic: + falls Physical Exam Constitutional: + cachectic Eyes: PERRL, conjunctivae normal, anicteric sclerae ENMT: Mouth: + oral mucosal abnormality (dry mucous membranes) Neck: trachea midline, no thyromegaly Respiratory: normal respiratory effort, lungs clear to auscultation Cardiovascular: Rate/Rhythm: regular rate and regular rhythm Extremities: + edema (2+ pretibial pitting edema) Gastrointestinal (Abdomen): Inspection/Auscultation: + abdomen distended (ten se ascites) and + hypoactive bowel sounds Percussion/Palpation: abdomen nontender Musculoskeletal: Extremities: no cyanosis Skin: no rashes, warm and dry Neurologic: awake; not confused Results & Data Vital Signs (Past 12 Hours) Vital Signs Temp Pulse Resp BP Pulse Ox 03/16/20 07:41 36.3 C L 96 H 20 100/69 95 03/16/20 04:32 36.4 C L 95 H 18 109/72 95 03/15/20 23:45 36.3 C L 97 H 18 116/76 94 Laboratory Results Laboratory Tests 03/16/20 03/16/20 06:35 06:35 WBC 13.72 H Hgb 8.9 L Hct 25.4 L Plt Count 138 Sodium 113 L* Potassium 4.3 Chloride 80 L Carbon Dioxide 26 BUN 10 Creatinine 0.39 L Glucose 75 Laboratory Results - last 24 hr 03/15/20 03/15/20 03/15/20 11:20 11:20 11:20 WBC 14.97 H RBC 3.12 L Hgb 9.2 L Hct 26.2 L MCV 84.0 MCH 29.5 MCHC 35.1 RDW Std Deviation 56.7 H RDW Coeff of Mitchell 19.3 H Plt Count 176 MPV 8.3 Immature Gran % (Auto) 6.3 Neut % (Auto) 81.4 Lymph % (Auto) 4.8 Vance % (Auto) 7.2 Eos % (Auto) 0.1 Baso % (Auto) 0.2 Immature Gran # (Auto) 0.95 H Neut # (Auto) 12.17 H Lymph # (Auto) 0.72 L Vance # (Auto) 1.08 H Eos # (Auto) 0.02 Baso # (Auto) 0.03 Toxic Granulation 1+ Anisocytosis Tear Drop Cells 1+ Echinocytes 1+ Schistocytes 1+ PT 13.4 H INR 1.3 H APTT 56.5 H* PTT Ratio 2.0 Sodium 114 L* Potassium 4.6 Chloride 80 L Carbon Dioxide 24 Anion Gap 10.0 BUN 10 Creatinine 0.36 L Est Cr Clr Drug Dosing Not Reportable Est GFR ( Amer) 117.2 Est GFR (Non-Af Amer) 101.1 BUN/Creatinine Ratio 28.6 H Glucose 79 Osmolality Calcium 7.8 L Phosphorus 3.1 Magnesium 1.8 Total Bilirubin 1.2 H Direct Bilirubin AST 101 H ALT 40 Alkaline Phosphatase 323 H Ammonia Troponin I < 0.015 Total Protein 5.5 L Albumin 2.1 L Globulin 3.4 Albumin/Globulin Ratio 0.6 L Procalcitonin TSH 5.690 H Free T4 1.17 Urine Color Urine Appearance Urine pH Ur Specific Thornton Urine Protein Urine Glucose (UA) Urine Ketones Urine Blood Urine Nitrite Urine Bilirubin Urine Urobilinogen Ur Leukocyte Esterase Urine WBC (Auto) Urine RBC (Auto) U Hyaline Cast (Auto) U Epithel Cells (Auto) Urine Bacteria (Auto) Urine Crystals Calcium Oxalate Crystal Urine Mucus Urine Osmolality Ur Random Sodium 03/15/20 03/15/20 03/15/20 11:20 11:20 13:15 WBC RBC Hgb Hct MCV MCH MCHC RDW Std Deviation RDW Coeff of Mitchell Plt Count MPV Immature Gran % (Auto) Neut % (Auto) Lymph % (Auto) Vance % (Auto) Eos % (Auto) Baso % (Auto) Immature Gran # (Auto) Neut # (Auto) Lymph # (Auto) Vance # (Auto) Eos # (Auto) Baso # (Auto) Toxic Granulation Anisocytosis Tear Drop Cells Echinocytes Schistocytes PT INR APTT PTT Ratio Sodium Potassium Chloride Carbon Dioxide Anion Gap BUN Creatinine Est Cr Clr Drug Dosing Est GFR ( Amer) Est GFR (Non-Af Amer) BUN/Creatinine Ratio Glucose Osmolality 235 L* Calcium Phosphorus Magnesium Total Bilirubin Direct Bilirubin AST ALT Alkaline Phosphatase Ammonia Troponin I Total Protein Albumin Globulin Albumin/Globulin Ratio Procalcitonin 0.47 TSH Free T4 Urine Color Dark Yellow Urine Appearance Cloudy A Urine pH 5.5 Ur Specific Thornton 1.026 Urine Protein Negative Urine Glucose (UA) Negative Urine Ketones Trace H Urine Blood Negative Urine Nitrite Negative Urine Bilirubin Negative Urine Urobilinogen Negative Ur Leukocyte Esterase Trace H Urine WBC (Auto) 1-5 Urine RBC (Auto) 0-4 U Hyaline Cast (Auto) 5-10 H U Epithel Cells (Auto) 20-30 H Urine Bacteria (Auto) Negative Urine Crystals Not Reportable Calcium Oxalate Crystal Present A Urine Mucus Present A Urine Osmolality Ur Random Sodium 03/15/20 03/15/20 03/15/20 13:15 13:15 17:12 WBC RBC Hgb Hct MCV MCH MCHC RDW Std Deviation RDW Coeff of Mitchell Plt Count MPV Immature Gran % (Auto) Neut % (Auto) Lymph % (Auto) Vance % (Auto) Eos % (Auto) Baso % (Auto) Immature Gran # (Auto) Neut # (Auto) Lymph # (Auto) Vance # (Auto) Eos # (Auto) Baso # (Auto) Toxic Granulation Anisocytosis Tear Drop Cells Echinocytes Schistocytes PT INR APTT PTT Ratio Sodium 115 L* Potassium 5.1 Chloride 83 L Carbon Dioxide 22 Anion Gap 10.0 BUN 10 Creatinine 0.32 L Est Cr Clr Drug Dosing 98.7 Est GFR ( Amer) 121.8 Est GFR (Non-Af Amer) 105.1 BUN/Creatinine Ratio 31.8 H Glucose 75 Osmolality Calcium 7.6 L Phosphorus Magnesium Total Bilirubin Direct Bilirubin AST ALT Alkaline Phosphatase Ammonia Troponin I Total Protein Albumin Globulin Albumin/Globulin Ratio Procalcitonin TSH Free T4 Urine Color Urine Appearance Urine pH Ur Specific Thornton Urine Protein Urine Glucose (UA) Urine Ketones Urine Blood Urine Nitrite Urine Bilirubin Urine Urobilinogen Ur Leukocyte Esterase Urine WBC (Auto) Urine RBC (Auto) U Hyaline Cast (Auto) U Epithel Cells (Auto) Urine Bacteria (Auto) Urine Crystals Calcium Oxalate Crystal Urine Mucus Urine Osmolality 451 L Ur Random Sodium 9 03/15/20 03/16/20 03/16/20 22:50 02:20 06:35 WBC RBC Hgb Hct MCV MCH MCHC RDW Std Deviation RDW Coeff of Mitchell Plt Count MPV Immature Gran % (Auto) Neut % (Auto) Lymph % (Auto) Vance % (Auto) Eos % (Auto) Baso % (Auto) Immature Gran # (Auto) Neut # (Auto) Lymph # (Auto) Vance # (Auto) Eos # (Auto) Baso # (Auto) Toxic Granulation Anisocytosis Tear Drop Cells Echinocytes Schistocytes PT INR APTT PTT Ratio Sodium 113 L* 114 L* 113 L* Potassium 4.8 4.6 4.3 Chloride 79 L 80 L 80 L Carbon Dioxide 24 25 26 Anion Gap 10.0 9.0 8.0 BUN 11 10 10 Creatinine 0.41 L 0.39 L 0.39 L Est Cr Clr Drug Dosing 77.1 81.0 116.6 Est GFR ( Amer) 112.3 114.2 114.2 Est GFR (Non-Af Amer) 96.9 98.5 98.5 BUN/Creatinine Ratio 25.9 H 24.9 H 26.5 H Glucose 76 79 75 Osmolality Calcium 8.0 L 7.8 L 7.8 L Phosphorus Magnesium Total Bilirubin 1.1 H Direct Bilirubin 0.8 H AST 95 H ALT 38 Alkaline Phosphatase 322 H Ammonia Troponin I Total Protein 5.1 L Albumin 1.9 L Globulin Albumin/Globulin Ratio Procalcitonin TSH Free T4 Urine Color Urine Appearance Urine pH Ur Specific Thornton Urine Protein Urine Glucose (UA) Urine Ketones Urine Blood Urine Nitrite Urine Bilirubin Urine Urobilinogen Ur Leukocyte Esterase Urine WBC (Auto) Urine RBC (Auto) U Hyaline Cast (Auto) U Epithel Cells (Auto) Urine Bacteria (Auto) Urine Crystals Calcium Oxalate Crystal Urine Mucus Urine Osmolality Ur Random Sodium 03/16/20 03/16/20 06:35 06:35 WBC 13.72 H RBC 3.03 L Hgb 8.9 L Hct 25.4 L MCV 83.8 MCH 29.4 MCHC 35.0 RDW Std Deviation 56.8 H RDW Coeff of Mitchell 19.4 H Plt Count 138 MPV 8.2 Immature Gran % (Auto) 5.5 Neut % (Auto) 80.1 Lymph % (Auto) 6.0 Vance % (Auto) 8.0 Eos % (Auto) 0.3 Baso % (Auto) 0.1 Immature Gran # (Auto) 0.76 H Neut # (Auto) 10.98 H Lymph # (Auto) 0.82 L Vance # (Auto) 1.10 H Eos # (Auto) 0.04 Baso # (Auto) 0.02 Toxic Granulation 1+ Anisocytosis Present Tear Drop Cells Echinocytes Schistocytes PT INR APTT PTT Ratio Sodium Potassium Chloride Carbon Dioxide Anion Gap BUN Creatinine Est Cr Clr Drug Dosing Est GFR ( Amer) Est GFR (Non-Af Amer) BUN/Creatinine Ratio Glucose Osmolality Calcium Phosphorus Magnesium Total Bilirubin Direct Bilirubin AST ALT Alkaline Phosphatase Ammonia 49.1 H Troponin I Total Protein Albumin Globulin Albumin/Globulin Ratio Procalcitonin TSH Free T4 Urine Color Urine Appearance Urine pH Ur Specific Thornton Urine Protein Urine Glucose (UA) Urine Ketones Urine Blood Urine Nitrite Urine Bilirubin Urine Urobilinogen Ur Leukocyte Esterase Urine WBC (Auto) Urine RBC (Auto) U Hyaline Cast (Auto) U Epithel Cells (Auto) Urine Bacteria (Auto) Urine Crystals Calcium Oxalate Crystal Urine Mucus Urine Osmolality Ur Random Sodium PG Care Time/CCT Total # of Minutes Spent Total Time Spent with Patient: Total time spent is greater than 50% in coordination of care (as documented) at patient's floor/unit and/or counseling patient: Coding Level of Care Code 93295 Inpt Consult Level 5 Diagnoses Chronic hyponatremia E87.1 Metastatic colon cancer to liver C18.9; C78.7
[2020-03-16 10:07] LABS: Hypochromasia Present
[2020-03-16 10:49] LABS: Calcium 7.6 mg/dl (8.5-10.1); Creatinine Clr Calc Pharmacy 110.9 ml/min; Est GFR (African American) 112.3; Est GFR (Non-African American) 96.9; Potassium 4.5 mmol/L (3.5-5.1)
--- NOTE | 2020-03-16 11:12 | Ultrasound Report ---
ULTRASOUND GUIDED diagnostic and therapeutic PARACENTESIS CLINICAL HISTORY: ascites COMPARISON STUDY: CT of the abdomen and pelvis March 15, 2020. PROCEDURE: The risks, benefits, and alternatives to the procedure were discussed with the patient inc luding the risk of bleeding, infection and injury to adjacent structures. The patient agreed to the procedure and informed written consent was obtained. Following real-time ultrasound localization, the skin of the right lower quadrant was prepped and draped. Following local anesthesia with Xylocaine, the sheath paracentesis needle was inserted and approximately 4 liters of straw-colored fluid was rem nikita by vacuum suction. The patient tolerated the procedure well and no immediate complications were evident. IMPRESSION: Ultrasound-guided paracentesis with removal of 4 liters of ascites. 1 L of ascites was s ent to laboratory for analysis as ordered. ACT 112: Negative or not required by law. Electronically signed by: Lavelle Borges M.D. 03/16/2020 11:11 AM
[2020-03-16 11:37] LABS: Appearance Peritoneal Fluid CLEAR; Color Peritoneal Fluid PALE YELLOW; RBC Peritoneal Fluid (A) < 3000 /uL; WBC Peritoneal Fluid (A) 89 /ul (0-300)
[2020-03-16 11:53] LABS: Basophils, Fluid 0 %; Eosinophils, Fluid 0 %; Lymphocytes, Fluid 27 %; Mono,Macrophage,Mesothelial 31 %; Neutrophils, Fluid 42 %
[2020-03-16 14:36] LABS: BUN Creatinine Ratio 26.7 (10-20); Calcium 7.9 mg/dl (8.5-10.1); Creatinine Clr Calc Pharmacy 113.7 ml/min; Est GFR (African American) 113.2; Est GFR (Non-African American) 97.7; Potassium 4.5 mmol/L (3.5-5.1)
--- NOTE | 2020-03-16 15:09 | Hospitalist Progress Note ---
Date of Service March 16, 2020 Assessment & Plan (1) Acute hyponatremia: Moderate symptoms of fatigue, lethargy, nausea, dizziness and gait disturbance likely related to this. No seizures. Secondary to suspected liver failure and hypervolemic state in the setting of metastatic colon cancer. Reduced from 127 to 112 in 9 days, although not necessarily acute in the last 48 hours, given moderate symptoms would suggest it was relatively gradual during that time. fluid restriction to 1500mL/day sodium up to 115 from 112, received Lasix yesterday on admission continue with hypertonic saline boluses, give 50mL now and repeat Na at 1800, give bolus again as needed once sodium is > 120 will start on oral sodium chloride goal is 6-8 mMol today, this would be 118-120 (2) Abdominal ascites: US guided paracentesis performed today, 4 liters removed tolerated well WBC only 89, no signs of SBP monitor for return of ascites (3) Weakness: Secondary to hyponatremia above consult PT/OT once appropriate will likely need home hospice (4) Metastatic colon cancer to liver: Enlargement of colonic mass and hepatic masses on CT. Possible pulmonary met on lung. Compression fractures. patient is not responding to treatment combined with her severe hyponatremia, Dr. Dewey recommends stopping chemotherapy and changing to palliative approach palliative care consulted to see on Wednesday patient is aware of this, okay with home hospice she is DNR (5) Severe protein-calorie malnutrition: Boost, endoscopic technician consult (6) Loss of appetite: Re-evaluate following paracentesis (7) DVT prophylaxis: Plan on chemical VTE prophylaxis after paracentesis Admission and Anticipated Discharge Date Admission Date: March 15, 2020 Subjective patient feeling well today after paracentesis for 4 liters, less abdominal discomfort Na continues to be low, resistant to boluses of hypertonic saline nephrology consulted, appreciate recommendations from Dr. Kc discussed with Dr. Dewey, no further chemotherapy planned, he recommends palliative care, will see on Wednesday spoke with patient about this, she is okay with this plan, just wants to know how soon she can go home discussed that we would want her sodium higher, stable on a regimen that she can maintain at home she is breathing well, no chest pain, no fever, vitals stable she asked me to call her daughter for update checked most recent sodium, still 115, giving another hypertonic bolus, check sodium at 1800 Review of Systems Review of Systems: All systems reviewed & are unremarkable except as noted in HPI & below Constitutional: + fatigue and + weakness; no fever Respiratory: no cough and no dyspnea Cardiovascular: no chest pain Gastrointestinal: + abdominal pain; no nausea, no vomiting, no constipation and no diarrhea/loose stools Physical Exam Constitutional: well developed, + cachectic and + frail appearing; no acute distress Eyes: PERRL, conjunctivae normal, anicteric sclerae ENMT: external ear and nose normal, oropharynx normal Neck: trachea midline, no thyromegaly Respiratory: normal respiratory effort, lungs clear to auscultation Cardiovascular: Rate/Rhythm: regular rate and regular rhythm Heart Sounds: normal S1 and normal S2; no murmur Vessels: no JVD Extremities: normal capillary refill and + edema (pitting edema in legs to the thighs) Gastrointestinal (Abdomen): Inspection/Auscultation: + abdomen distended and normal bowel sounds Percussion/Palpation: + abdomen tender, + ascites, + dullness to percussion, + fluid wave and + abdomen firm Musculoskeletal: no cyanosis or clubbing, extremities motor strength 5/5 Skin: no rashes, warm and dry Neurologic: patellar DTR's 2+ bilat, sensation intact and PERRL, EOMI, accommodation nl, no face palsy, no dysarthria Psychiatric: A+Ox3, euthymic affect Lymphatic: no cervical or axillary lymphadenopathy Results & Data Results & Data ([facility]) Vital Signs (Past 12 Hours) Vital Signs Temp Pulse Resp BP Pulse Ox 03/16/20 14:30 94 H 16 101/61 96 03/16/20 14:00 92 H 16 102/64 96 03/16/20 13:30 95 H 16 100/65 98 03/16/20 13:00 90 16 106/67 94 03/16/20 12:30 91 H 16 105/62 95 03/16/20 12:00 90 18 107/70 98 03/16/20 11:45 87 16 104/68 97 03/16/20 11:30 91 H 16 100/62 97 03/16/20 11:22 36.5 C 90 20 116/69 95 03/16/20 11:15 36.4 C L 89 16 102/65 96 03/16/20 07:41 36.3 C L 96 H 20 100/69 95 03/16/20 04:32 36.4 C L 95 H 18 109/72 95 Laboratory Results Laboratory Results - last 24 hr 03/15/20 03/15/20 03/15/20 11:20 17:12 22:50 WBC RBC Hgb Hct MCV MCH MCHC RDW Std Deviation RDW Coeff of Mitchell Plt Count MPV Immature Gran % (Auto) Neut % (Auto) Lymph % (Auto) [place] % (Auto) Eos % (Auto) Baso % (Auto) Immature Gran # (Auto) Neut # (Auto) Lymph # (Auto) [place] # (Auto) Eos # (Auto) Baso # (Auto) Toxic Granulation Hypochromasia Present Anisocytosis Sodium 115 L* 113 L* Potassium 5.1 4.8 Chloride 83 L 79 L Carbon Dioxide 22 24 Anion Gap 10.0 10.0 BUN 10 11 Creatinine 0.32 L 0.41 L Est Cr Clr Drug Dosing 98.7 77.1 Est GFR ( Amer) 121.8 112.3 Est GFR (Non-Af Amer) 105.1 96.9 BUN/Creatinine Ratio 31.8 H 25.9 H Glucose 75 76 Calcium 7.6 L 8.0 L Total Bilirubin Direct Bilirubin AST ALT Alkaline Phosphatase Ammonia Total Protein Albumin Fluid Neutrophils % Fluid Lymphocytes % Fluid Eosinophils % Fluid Basophils % Fluid Meso/Macro/Caldwell % Peritoneal Color Peritoneal Appearance Peritoneal WBC Peritoneal RBC 03/16/20 03/16/20 03/16/20 02:20 06:35 06:35 WBC RBC Hgb Hct MCV MCH MCHC RDW Std Deviation RDW Coeff of Mitchell Plt Count MPV Immature Gran % (Auto) Neut % (Auto) Lymph % (Auto) [place] % (Auto) Eos % (Auto) Baso % (Auto) Immature Gran # (Auto) Neut # (Auto) Lymph # (Auto) [place] # (Auto) Eos # (Auto) Baso # (Auto) Toxic Granulation Hypochromasia Anisocytosis Sodium 114 L* 113 L* Potassium 4.6 4.3 Chloride 80 L 80 L Carbon Dioxide 25 26 Anion Gap 9.0 8.0 BUN 10 10 Creatinine 0.39 L 0.39 L Est Cr Clr Drug Dosing 81.0 116.6 Est GFR ( Amer) 114.2 114.2 Est GFR (Non-Af Amer) 98.5 98.5 BUN/Creatinine Ratio 24.9 H 26.5 H Glucose 79 75 Calcium 7.8 L 7.8 L Total Bilirubin 1.1 H Direct Bilirubin 0.8 H AST 95 H ALT 38 Alkaline Phosphatase 322 H Ammonia 49.1 H Total Protein 5.1 L Albumin 1.9 L Fluid Neutrophils % Fluid Lymphocytes % Fluid Eosinophils % Fluid Basophils % Fluid Meso/Macro/Caldwell % Peritoneal Color Peritoneal Appearance Peritoneal WBC Peritoneal RBC 03/16/20 03/16/20 03/16/20 06:35 10:06 13:58 WBC 13.72 H RBC 3.03 L Hgb 8.9 L Hct 25.4 L MCV 83.8 MCH 29.4 MCHC 35.0 RDW Std Deviation 56.8 H RDW Coeff of Mitchell 19.4 H Plt Count 138 MPV 8.2 Immature Gran % (Auto) 5.5 Neut % (Auto) 80.1 Lymph % (Auto) 6.0 Caldwell % (Auto) 8.0 Eos % (Auto) 0.3 Baso % (Auto) 0.1 Immature Gran # (Auto) 0.76 H Neut # (Auto) 10.98 H Lymph # (Auto) 0.82 L Caldwell # (Auto) 1.10 H Eos # (Auto) 0.04 Baso # (Auto) 0.02 Toxic Granulation 1+ Hypochromasia Anisocytosis Present Sodium 115 L* 115 L* Potassium 4.5 4.5 Chloride 81 L 80 L Carbon Dioxide 25 26 Anion Gap 9.0 9.0 BUN 11 11 Creatinine 0.41 L 0.40 L Est Cr Clr Drug Dosing 110.9 113.7 Est GFR ( Amer) 112.3 113.2 Est GFR (Non-Af Amer) 96.9 97.7 BUN/Creatinine Ratio 26.0 H 26.7 H Glucose 93 92 Calcium 7.6 L 7.9 L Total Bilirubin Direct Bilirubin AST ALT Alkaline Phosphatase Ammonia Total Protein Albumin Fluid Neutrophils % Fluid Lymphocytes % Fluid Eosinophils % Fluid Basophils % Fluid Meso/Macro/Caldwell % Peritoneal Color Peritoneal Appearance Peritoneal WBC Peritoneal RBC 03/16/20 Unknown WBC RBC Hgb Hct MCV MCH MCHC RDW Std Deviation RDW Coeff of Mitchell Plt Count MPV Immature Gran % (Auto) Neut % (Auto) Lymph % (Auto) Caldwell % (Auto) Eos % (Auto) Baso % (Auto) Immature Gran # (Auto) Neut # (Auto) Lymph # (Auto) [place] # (Auto) Eos # (Auto) Baso # (Auto) Toxic Granulation Hypochromasia Anisocytosis Sodium Potassium Chloride Carbon Dioxide Anion Gap BUN Creatinine Est Cr Clr Drug Dosing Est GFR ( Amer) Est GFR (Non-Af Amer) BUN/Creatinine Ratio Glucose Calcium Total Bilirubin Direct Bilirubin AST ALT Alkaline Phosphatase Ammonia Total Protein Albumin Fluid Neutrophils % 42 Fluid Lymphocytes % 27 Fluid Eosinophils % 0 Fluid Basophils % 0 Fluid Meso/Macro/Caldwell % 31 Peritoneal Color PALE YELLOW Peritoneal Appearance CLEAR Peritoneal WBC 89 Peritoneal RBC < 3000 Medications Administered Current Inpatient Medications Al Hydrox/Mg Hydrox/Simethicone (Maalox) 15 ml PO Q4H PRN PRN Reason: Dyspepsia Stop: 04/14/20 21:12 Calcium Carbonate (Os-Dusty 500) 1,250 mg PO QAM@08 [facility] Stop: 04/15/20 07:59 Last Admin: 03/16/20 07:56 Dose: 1,250 mg Documented by: Fish Oil (Deforest-3 (Purified Fish Oil)) 1 gm PO BID@ [facility] Stop: 04/14/20 19:59 Last Admin: 03/16/20 07:56 Dose: 1 gm Documented by: Heparin Sodium (Porcine) (Heparin Sod 100 Unit/Ml Flush) 5 ml FLUSH PRN PRN PRN Reason: Flush Stop: 04/15/20 00:11 Sodium Chloride (Hypertonic Saline 3%) 50 mls @ 300 mls/hr IV .Q10M ONE Stop: 03/16/20 15:07 Ioversol (Optiray 320 100ml) 95 ml IV ONCE PRN PRN Reason: Interaction Checking Stop: 03/19/20 12:24 Last Admin: 03/15/20 12:25 Dose: 95 ml Documented by: Multivitamins/Minerals (Multivitamin W/ Minerals Tab) 1 tab PO BID@ [facility] Stop: 04/14/20 20:59 Last Admin: 03/16/20 07:56 Dose: 1 tab Documented by: Ondansetron HCl (Zofran) 4 mg IV Q6H PRN PRN Reason: Nausea Stop: 04/14/20 21:12 PG Care Time/CCT Total # of Minutes Spent Total Time Spent: 36 Total Time Spent with Patient: Total time spent is greater than 50% in coordination of care (as documented) at patient's floor/unit and/or counseling patient: Coding Level of Care Code 32051 Subseq Hosp Care Lvl 3 Diagnoses Acute hyponatremia E87.1 Abdominal ascites R18.8 Ascites type: other type Weakness R53.1 Metastatic colon cancer to liver C18.9; C78.7 Severe protein-calorie malnutrition E43 Loss of appetite R63.0 DVT prophylaxis Z29.9 (1) Abdominal ascites Ascites type: other type Qualified Code(s): R18.8 - Other ascites
[2020-03-16 18:43] LABS: BUN Creatinine Ratio 25.1 (10-20); Calcium 7.9 mg/dl (8.5-10.1); Creatinine Clr Calc Pharmacy 113.7 ml/min; Est GFR (African American) 113.2; Est GFR (Non-African American) 97.7; Potassium 4.5 mmol/L (3.5-5.1)
[2020-03-16] MEDS ORDERED: SODIUM CHLORIDE 3 % 100 ML IV ONE (19:00)
--- NOTE | 2020-03-16 19:55 | Consultation Report ---
DATE OF CONSULTATION: 03/16/2020 MEDICAL ONCOLOGY CONSULTATION REASON FOR CONSULTATION: An 79-year-old female with end-stage metastatic colorectal cancer. HISTORY OF PRESENT ILLNESS: Alma Hernadez is a pleasant 79-year-old unfortunate female with a diagnosis of metastatic colorectal cancer, admitted to [facility] yesterday because of ascites and hyponatremia. Alma was originally diagnosed with metastatic colorectal cancer (hepatic mets) in 05/2019. Alma was originally treated with FOLFOX in combination with bevacizumab but unfortunately reacted to oxaliplatin on cycle 7 necessitating a switch to FOLFIRI. CT scan of the chest, abdomen and pelvis performed in 12/2019 revealed expanding hepatic metastatic disease as well as peritoneal metastatic implants and associated ascites. I had prescribed Lonsurf, which is a novel oral 5-FU type chemotherapy, which unfortunately does not appear to be impacting her disease progression. Yesterday, she presented to the office with a significantly increased abdominal girth and lower extremity swelling. I insisted that she report to the Emergency Room and she was appropriately admitted for medical management. CT scan of the abdomen and pelvis revealed increasing volume of ascites. Slight enlargement of the large hepatic metastatic disease and slight enlargement of the colonic mass at the level of splenic flexure. CT of the chest revealed subtle mild compression deformities of superior end plates T3 and T4, which are new since her CT of 12/2019; bilateral rib fractures, none of which were acute; slight increase in size 7 mm right upper lobe pulmonary nodule. Alma's sodium was 111 on presentation yesterday and again recommended admission to the hospital for management. Primary service is asking me to discuss long-term goals moving forward considering her disease has progressed despite all therapies administered to date. PAST MEDICAL HISTORY: Metastatic colorectal cancer, brain tumor, anorexia, macular degeneration. PAST SURGICAL HISTORY: Status post colonoscopy. MEDICATIONS: Prior to admission include ferrous sulfate 325 mg p.o. daily, [place]-3 fatty acids 1000 mg p.o. b.i.d., calcium carbonate 500 mg p.o. daily. ALLERGIES: No known drug allergies. FAMILY HISTORY: Brother suffered from an unknown cancer. Her father suffered and passed attributable to CVA. SOCIAL HISTORY: The patient lives with her spouse. She is a nonsmoker, nondrinker, non-illicit drug user. REVIEW OF SYSTEMS: GENERAL: Positive for general decline, which includes asthenia, anorexia, increased abdominal girth. Negative for fevers, chills or sweats. SKIN: No overt rashes or lesions. Several senile purpura scattered over her forearms bilaterally. HEENT: She denies headaches, lightheadedness or dizziness at present, no visual or hearing deficits. No sinus symptoms, sore throat or dysphagia. LYMPHATICS: No history of lymphoproliferative disease. CARDIAC: Negative for coronary artery disease. No current angina or palpitations. PULMONARY: She has no history of COPD. She is not short of breath, dyspneic or orthopneic. GASTROINTESTINAL: No current nausea or vomiting. Positive for mild upper abdominal tenderness. Negative for hematochezia or melena. GENITOURINARY: No hematuria, dysuria, or urinary incontinence. PSYCHIATRIC: Negative for anxiety, depression or psychoses. ENDOCRINE: Negative for diabetes or thyroid disease. MUSCULOSKELETAL: No focal muscle weakness, no arthralgias. NEUROLOGIC: Negative for seizure, stroke, or migraine headache. HEMATOLOGIC: Positive for leukocytosis, normocytic normochromic anemia, and borderline thrombocytopenia. PHYSICAL EXAMINATION: GENERAL: Very ill-appearing 79-year-old female lying supine in bed, awake, alert and appropriate, in no acute distress. VITAL SIGNS: Temperature 36.5, pulse 90, respiratory rate 20, blood pressure 116/69. SKIN: Turgor is poor. Again, scattered senile purpura encompassing her forearms bilaterally. HEENT: Atraumatic, normocephalic. Eyes: PERRLA, EOMI. Sclerae slightly icteric. Nares patent without rhinorrhea or discharge. Throat: Mucous membranes are dry. No buccal lesions or ulcerations. NECK: Supple. HEART: Regular rate and rhythm. LUNGS: Clear to auscultation. ABDOMEN: Moderately distended, certainly much improved since her paracentesis just prior to examination today. Bowel sounds are hypoactive. Again, mildly tender in the upper quadrants of the abdomen. EXTREMITIES: 2+ peripheral edema bilaterally. NEUROLOGICAL: She is awake, alert and oriented. Cranial nerves are grossly intact. LABORATORY DATA: WBC count 13,720, hemoglobin 8.9, platelet count 138,000, absolute neutrophil count 10,980. Sodium 115, potassium 4.5, chloride 81, carbon dioxide 25, creatinine 0.41, BUN 11. Total bilirubin 1.1, direct bilirubin 0.8, alkaline phosphatase 322, ammonia 49.1, albumin 1.9. Urinalysis, trace leukocyte esterase. IMPRESSION: 1. Abdominal ascites. 2. Lower extremity edema. 3. Hypoalbuminemia. 4. End-stage metastatic colorectal cancer. 5. Hyponatremia. PLAN: Alma was seen and examined at bedside this morning. In summary, she was diagnosed with metastatic colorectal cancer in 05/2019. She was started on combination FOLFOX and bevacizumab, but unfortunately reacted to oxaliplatin on cycle 7 necessitating switching oxaliplatin in favor of irinotecan. Despite a full complement of salvage chemotherapy, her CT scan in December had revealed progressing metastatic disease with the addition of peritoneal metastatic implants and ascites. She was recently placed on Lonsurf, which clearly is not making much of an impact and probably negatively affecting her at the present time. She presented to the office yesterday looking poorly with increasing abdominal girth and lower extremity ascites. Her sodium was very low and thus recommended admission to the hospital. I had a lengthy discussion with Alma reinforcing she suffers from terminal state and needs to seriously consider no code status moving forward. Engaged in discussion about incorporating outpatient hospice as she has expressed a desire to return home with her . I suspect her survival is measured in days to maybe a week or two. I have asked her to discontinue Lonsurf at this point as I believe it is actually expediting her and not prolonging her life. Alma appeared to be receptive to everything explained to her today. Obviously, she needs to discuss further with her when she gets the opportunity, but I believe she is on board with a palliative consult and perhaps home hospice moving forward. I agree with current medical management and discussed my conversation with Alma with nursing staff this morning. I would be more than happy to continue seeing Alma in the office for what I described as pain and nutritional assessment, which I offer to all my end-stage cancer patients. Thank you very much for allowing me to participate in her care. If there are any questions or concerns, I can be contacted at any time by phone.
[2020-03-16 23:18] LABS: Creatinine Clr Calc Pharmacy 126.3 ml/min; Est GFR (African American) 117.2; Est GFR (Non-African American) 101.1; Potassium 4.4 mmol/L (3.5-5.1)
[2020-03-16] MEDS ORDERED: SODIUM CHLORIDE 1 GM TABLET PO STA (23:37)
[2020-03-17 06:56] LABS: BUN Creatinine Ratio 25.4 (10-20); Creatinine Clr Calc Pharmacy 100.7 ml/min; Est GFR (African American) 112.3; Est GFR (Non-African American) 96.9; Potassium 4.7 mmol/L (3.5-5.1)
[2020-03-17] MEDS: CEROVITE ADV FORMULA TAB PO SCH ×2 (08:34→19:42)
[2020-03-17] MEDS: CALCIUM CARBONATE 1250MG TAB PO SCH (08:34)
[2020-03-17] MEDS: OMEGA-3 (PURIFIED FISH OIL) 1 GM CAP PO SCH ×2 (08:34→19:43)
[2020-03-17] MEDS: HEPARIN 100 UNIT/ML 5ML FLUSH FLUSH PRN (08:38)
[2020-03-17] MEDS ORDERED: SODIUM CHLORIDE 3 % 100 ML IV ONE (09:00)
--- NOTE | 2020-03-17 10:13 | Nephrology Progress Note ---
Date of Service March 17, 2020 Assessment & Plan (1) Chronic hyponatremia: * Severe hyponatremia. This has been chronic and progressive. Clinically suspect hyponatremia has been related to underlying colon cancer, metastatic liver disease and Irenotecan therapy * Agree w/ 3% saline administration. Target is to correct serum sodium by 6 - 8 mmol/24 hours * Will administer 100 cc 3% saline this morning and reassess serum sodium ~ 2 hours later * May consider transitioning to oral NaCl tablets (2) Metastatic colon cancer to liver: * 4 L paracentesis completed yesterday * Oncology has been consulted. Patient may transition to hospice care Admission and Anticipated Discharge Date Admission Date: March 15, 2020 Subjective Mrs. Hernadez was seen & examined in her hospital room this morning. She remains weak. Despite several doses of 3% NaCl serum sodium has only risen from 113 to 115 mmol/L. Mrs. Hernadez did indicate that she is able to swallow medications and can take salt tablets if needed. She underwent paracentesis for 4L volume removal yesterday. She reports that her abdominal discomfort is significantly improved. Review of Systems Constitutional: + weakness; no fever Eyes: no problem reported Ear, Nose, Mouth, Throat: no problem reported Respiratory: no dyspnea Cardiovascular: + edema; no chest pain and no palpitations Gastrointestinal: + problem reported (+ abdominal distention); no abdominal pain, no nausea, no vomiting and no diarrhea/loose stools Genitourinary: no dysuria and no hematuria Musculoskeletal: no back pain Integumentary: no rash Neurologic: + falls Physical Exam Constitutional: + cachectic Eyes: PERRL, conjunctivae normal, anicteric sclerae ENMT: Mouth: + oral mucosal abnormality (dry mucous membranes) Neck: trachea midline, no thyromegaly Respiratory: normal respiratory effort, lungs clear to auscultation Cardiovascular: Rate/Rhythm: regular rate and regular rhythm Extremities: + edema (2+ pretibial pitting edema. Poor skin turgor involving the arms) Gastrointestinal (Abdomen): Inspection/Auscultation: + abdomen distended (tense ascites) and + hypoactive bowel sounds Percussion/Palpation: abdomen nontender Musculoskeletal: Extremities: no cyanosis Skin: no rashes, warm and dry Neurologic: awake; not confused Results & Data ([facility]) Vital Signs (Past 12 Hours) Vital Signs Temp Pulse Pulse Resp BP Pulse Ox 03/17/20 07:58 36.5 C 86 18 108/65 94 03/17/20 04:05 36.4 C L 101 H 18 97/65 L 93 03/17/20 00:01 99 H 03/16/20 23:09 36.3 C L 97 H 18 108/70 93 Laboratory Results Laboratory Tests 03/17/20 05:58 Sodium 115 L* Potassium 4.7 Chloride 82 L Carbon Dioxide 25 BUN 10 Creatinine 0.41 L Glucose 103 H Calcium 8.0 L PG Care Time/CCT Total # of Minutes Spent Total Time Spent with Patient: Total time spent is greater than 50% in coordination of care (as documented) at patient's floor/unit and/or counseling patient: Coding Level of Care Code 02346 Subseq Hosp Care Lvl 3 Diagnoses Chronic hyponatremia E87.1 Metastatic colon cancer to liver C18.9; C78.7
[2020-03-17 12:50] LABS: BUN Creatinine Ratio 25.2 (10-20); Calcium 8.1 mg/dl (8.5-10.1); Creatinine Clr Calc Pharmacy 103.3 ml/min; Est GFR (African American) 113.2; Est GFR (Non-African American) 97.7; Potassium 4.5 mmol/L (3.5-5.1)
--- NOTE | 2020-03-17 15:00 | Hospitalist Progress Note ---
Date of Service March 17, 2020 Assessment & Plan (1) Acute hyponatremia: Moderate symptoms of fatigue, lethargy, nausea, dizziness and gait disturbance likely related to this. No seizures. Secondary to suspected liver failure and hypervolemic state in the setting of metastatic colon cancer. Reduced from 127 to 112 in 9 days, although not necessarily acute in the last 48 hours, given moderate symptoms would suggest it was relatively gradual during that time. continue fluid restriction to 1500mL/day sodium up to 117 this afternoon, was 112 on admission continue with hypertonic saline boluses as directed by nephrology plan to start sodium chloride tablets correction goal is 6-8 in 24 hours anticipate going home on hospice meet with palliative care tomorrow (2) Abdominal ascites: US guided paracentesis performed 03/16, 4 liters removed tolerated well WBC only 89, no signs of SBP monitor for return of ascites which will likely happen in a few days (3) Weakness: Secondary to hyponatremia above consult PT/OT once appropriate will likely need home hospice (4) Metastatic colon cancer to liver: Enlargement of colonic mass and hepatic masses on CT. Possible pulmonary met on lung. Compression fractures. patient is not responding to treatment combined with her severe hyponatremia, Dr. Dewey recommends stopping chemotherapy and changing to palliative approach palliative care consulted to see on Wednesday patient is aware of this, okay with home hospice she is DNR (5) Severe protein-calorie malnutrition: Boost, board filler consult encouraging her to eat whatever she can, she prefers vegan diet (6) Loss of appetite: Re-evaluate following paracentesis slightly better (7) DVT prophylaxis: Plan on chemical VTE prophylaxis after paracentesis Admission and Anticipated Discharge Date Admission Date: March 15, 2020 Subjective patient stable today, sitting up in chair, no distress she is trying to eat her lunch but wants a vegan option discussed with her that it is good to eat salt, as much as she wants, she insists on vegan discussed with Dr. Kc, will given 100cc of 3% saline again, check BMP sodium up to 117 from 115, will likely start on PO NaCl goal is not for normal sodium as hyponatremia progressive, due to malignancy and ascites discussed going home with hospice, patient agrees, knows she will talk with palliative tomorrow Review of Systems Review of Systems: All systems reviewed & are unremarkable except as noted in HPI & below Constitutional: + fatigue and + weakness; no fever Respiratory: no cough and no dyspnea Cardiovascular: + edema; no chest pain Gastrointestinal: + abdominal pain (discomfort from ascites); no nausea, no vo miting, no constipation and no diarrhea/loose stools Physical Exam Constitutional: well developed, + cachectic and + frail appearing; no acute distress Eyes: PERRL, conjunctivae normal, anicteric sclerae ENMT: external ear and nose normal, oropharynx normal Neck: trachea midline, no thyromegaly Respiratory: normal respiratory effort, lungs clear to auscultation Cardiovascular: Rate/Rhythm: regular rate and regular rhythm Heart Sounds: normal S1 and normal S2; no murmur Vessels: no JVD Extremities: normal capillary refill and + edema (pitting edema in legs to the thighs) Gastrointestinal (Abdomen): Inspection/Auscultation: + abdomen distended and normal bowel sounds Percussion/Palpation: + abdomen tender, + ascites, + dullness to percussion, + fluid wave and + abdomen firm Musculoskeletal: no cyanosis or clubbing, extremities motor strength 5/5 Skin: no rashes, warm and dry Neurologic: patellar DTR's 2+ bilat, sensation intact and PERRL, EOMI, accommodation nl, no face palsy, no dysarthria Psychiatric: A+Ox3, euthymic affect Lymphatic: no cervical or axillary lymphadenopathy Results & Data Results & Data ([facility]) Vital Signs (Past 12 Hours) Vital Signs Temp Pulse Resp BP Pulse Ox 03/17/20 11:39 36.4 C L 90 18 101/57 L 97 03/17/20 07:58 36.5 C 86 18 108/65 94 03/17/20 04:05 36.4 C L 101 H 18 97/65 L 93 Laboratory Results Laboratory Results - last 24 hr 03/16/20 03/16/20 03/17/20 17:48 22:27 05:58 Sodium 115 L* 117 L* 115 L* Potassium 4.5 4.4 4.7 Chloride 80 L 82 L 82 L Carbon Dioxide 25 26 25 Anion Gap 10.0 9.0 8.0 BUN 10 10 10 Creatinine 0.40 L 0.36 L 0.41 L Est Cr Clr Drug Dosing 113.7 126.3 100.7 Est GFR ( Amer) 113.2 117.2 112.3 Est GFR (Non-Af Amer) 97.7 101.1 96.9 BUN/Creatinine Ratio 25.1 H 29.0 H 25.4 H Glucose 93 89 103 H Calcium 7.9 L 8.0 L 8.0 L Specimen Hemolysis 03/17/20 12:15 Sodium 117 L* Potassium 4.5 Chloride 85 L Carbon Dioxide 26 Anion Gap 7.0 BUN 10 Creatinine 0.40 L Est Cr Clr Drug Dosing 103.3 Est GFR ( Amer) 113.2 Est GFR (Non-Af Amer) 97.7 BUN/Creatinine Ratio 25.2 H Glucose 99 Calcium 8.1 L Specimen Hemolysis Medications Administered Current Inpatient Medications Al Hydrox/Mg Hydrox/Simethicone (Maalox) 15 ml PO Q4H PRN PRN Reason: Dyspepsia Stop: 04/14/20 21:12 Calcium Carbonate (Os-Dusty 500) 1,250 mg PO QAM@0800 [facility] Stop: 04/15/20 07:59 Last Admin: 03/17/20 08:34 Dose: 1,250 mg Documented by: Fish Oil (Pachuta-3 (Purified Fish Oil)) 1 gm PO BID@ [facility] Stop: 04/14/20 19:59 Last Admin: 03/17/20 08:34 Dose: 1 gm Documented by: Heparin Sodium (Porcine) (Heparin Sod 100 Unit/Ml Flush) 5 ml FLUSH PRN PRN PRN Reason: Flush Stop: 04/15/20 00:11 Last Admin: 03/17/20 08:38 Dose: 5 ml Documented by: Ioversol (Optiray 320 100ml) 95 ml IV ONCE PRN PRN Reason: Interaction Checking Stop: 03/19/20 12:24 Last Admin: 03/15/20 12:25 Dose: 95 ml Documented by: Multivitamins/Minerals (Multivitamin W/ Minerals Tab) 1 tab PO BID@ [facility] Stop: 04/14/20 20:59 Last Admin: 03/17/20 08:34 Dose: 1 tab Documented by: Ondansetron HCl (Zofran) 4 mg IV Q6H PRN PRN Reason: Nausea Stop: 04/14/20 21:12 PG Care Time/CCT Total # of Minutes Spent Total Time Spent with Patient: Total time spent is greater than 50% in coordination of care (as documented) at patient's floor/unit and/or counseling patient: Coding Level of Care Code 34617 Subseq Hosp Care Lvl 2 Diagnoses Acute hyponatremia E87.1 Abdominal ascites R18.8 Ascites type: other type Weakness R53.1 Metastatic colon cancer to liver C18.9; C78.7 Severe protein-calorie malnutrition E43 Loss of appetite R63.0 DVT prophylaxis Z29.9 (1) Abdominal ascites Ascites type: other type Qualified Code(s): R18.8 - Other ascites
[2020-03-17] MEDS: SODIUM CHLORIDE 1 GM TABLET PO SCH ×2 (16:52→19:42)
[2020-03-18 07:23] LABS: BUN Creatinine Ratio 29.9 (10-20); Calcium 7.7 mg/dl (8.5-10.1); Creatinine Clr Calc Pharmacy 133.2 ml/min; Est GFR (African American) 123.1; Est GFR (Non-African American) 106.2; Potassium 4.7 mmol/L (3.5-5.1)
--- NOTE | 2020-03-18 07:38 | Hospitalist Progress Note ---
Date of Service March 18, 2020 Assessment & Plan (1) Acute hyponatremia: Moderate symptoms of fatigue, lethargy, nausea, dizziness and gait disturbance. No seizures. Secondary to suspected liver failure and hypervolemic state in the setting of metastatic colon cancer, possibly also influenced by chemotherapy. Reduced from 127 to 112 in 9 days continue fluid restriction to 1500mL/day Nephrology has oversight with hypertonic saline considering transition to oral sodium chloride tablets correction goal is 6-8 / 24 hours anticipate going home on hospice met with palliative care 03/18/20, [employer] (2) Abdominal ascites: US guided paracentesis performed 03/16, 4 liters removed tolerated well but persistent leakage of ascites WBC only 89, no signs of SBP (3) Weakness: Secondary to hyponatremia above consult PT/OT, may hold off is plan changes to home hospice (4) Metastatic colon cancer to liver: Enlargement of colonic mass and hepatic masses on CT. Possible pulmonary met on lung. Compression fractures. patient is not responding to treatment combined with her severe hyponatremia, Dr. Dewey recommends stopping chemotherapy and changing to palliative approach palliative care consulted to see 03/18/20 patient is aware of this, okay with home hospice she is DNR CT abd/pelvis 03/15/20 IMPRESSION: 1. No evidence of acute intra-abdominal or pelvic injury. 2. Increasing large volume of ascites 3. Slight enlargement in the large hepatic metastasis 4. Slight enlargement in the colonic mass at the level of the splenic flexure (5) Severe protein-calorie malnutrition: Boost, accountant tax consult encouraging her to eat whatever she can, she prefers vegan diet (6) Loss of appetite: related to malignancy, slight improvement after chemotherapy (7) DVT prophylaxis: lovenox Admission and Anticipated Discharge Date Admission Date: March 15, 2020 Subjective this pt is fatigued, she has no focal complaints, she is tolerant of the colostomy site to control her persistent seeping of her ascites from her paracentesis site. REprotedly will have home on hospice this week Review of Systems Review of Systems: moderate distress and fatigue no headache, blurry or double vision no speech or swallowing issues no chest pain, pressure or palpitations no shortness of breath, cough or wheezes distended abdomen and ascites present no dysuria, hematuria or frequency no focal joint pain does have peripheral swelling no back pain, CVA tenderness or radicular pain sallow complexion minor jaundice ? no focal signs of weakness but overall deconditioned and weak Physical Exam Physical Exam: The patient appeared chronically ill and emaciated Vital signs as documented. Head exam is normocephalic atraumatic no scleral icterus Neck is without JVD, thyromegaly, or carotid bruits. Lungs are diminshed Cardiac exam, Rhythm is regular.. No murmurs, rubs or gallops. Abdominal exam reveals normal bowel sounds, distended and fluid wave, leaking from paracentesis is controlled by colostomy bag Extremities are thin but edematous Neurologic exam is alert and orientedx 2 but sleepy Skin is without bruises or rashes Results & Data Results & Data ([facility]) Vital Signs (Past 12 Hours) Vital Signs Temp Pulse Pulse Resp BP Pulse Ox 03/18/20 06:32 87 98/64 L 03/18/20 03:29 97.7 F 93 H 17 90/60 L 95 03/18/20 00:11 74 03/17/20 23:33 98.1 F 94 H 17 100/61 96 03/17/20 19:56 98.2 F 58 L 18 158/80 H 98 03/17/20 19:45 90 PG Care Time/CCT Total # of Minutes Spent Total Time Spent with Patient: Total time spent is greater than 50% in coordination of care (as documented) at patient's floor/unit and/or counseling patient: Coding Level of Care Code 67380 Subseq Hosp Care Lvl 3 Diagnoses Acute hyponatremia E87.1 Abdominal ascites R18.8 Ascites type: other type Weakness R53.1 Metastatic colon cancer to liver C18.9; C78.7 Severe protein-calorie malnutrition E43 Loss of appetite R63.0 DVT prophylaxis Z29.9 (1) Abdominal ascites Ascites type: other type Qualified Code(s): R18.8 - Other ascites
[2020-03-18] MEDS ORDERED: ENOXAPARIN INJ 40 MG/0.4 ML SYR SQ SCH (09:00)
[2020-03-18] MEDS ORDERED: FUROSEMIDE 20 MG TAB PO ONE ×2 (09:15→15:00)
[2020-03-18] MEDS: CEROVITE ADV FORMULA TAB PO SCH ×2 (09:21→21:08)
[2020-03-18] MEDS: OMEGA-3 (PURIFIED FISH OIL) 1 GM CAP PO SCH ×2 (09:21→21:08)
[2020-03-18] MEDS: SODIUM CHLORIDE 1 GM TABLET PO SCH ×2 (09:21→21:08)
[2020-03-18] MEDS: CALCIUM CARBONATE 1250MG TAB PO SCH (09:22)
[2020-03-18] MEDS: ENOXAPARIN INJ 40 MG/0.4 ML SYR SQ SCH (09:27)
--- NOTE | 2020-03-18 09:32 | Nephrology Progress Note ---
Date of Service March 18, 2020 Assessment & Plan (1) Chronic hyponatremia: * Severe hyponatremia. This has been chronic and progressive. Clinically suspect hyponatremia has been related to underlying colon cancer, metastatic liver disease and Irenotecan therapy * Serum sodium is now gradually trending up on NaCl tablets. Serum sodium is 118 mmol/L this am * Continue NaCl 2g po BID. Will provide one dose Furosemide 20 mg po x1 to help force free water excretion * Will recheck PRP at noon today (2) Metastatic colon cancer to liver: * 4 L paracentesis completed 03/16/20 * Oncology has been consulted. Patient may transition to hospice care Admission and Anticipated Discharge Date Admission Date: March 15, 2020 Subjective Mrs. Hernadez was seen & examined in her hospital room this morning. She remains weak but states that she is tolerating oral NaCl tablets without GI upset. Review of Systems Constitutional: + weakness; no fever Eyes: no problem reported Ear, Nose, Mouth, Throat: no problem reported Respiratory: no cough and no dyspnea Cardiovascular: + edema; no chest pain and no palpitations Gastrointestinal: + problem reported (+ abdominal distention); no abdominal pain, no nausea, no vomiting and no diarrhea/loose stools Genitourinary: no dysuria and no hematuria Musculoskeletal: no back pain Integumentary: no rash Neurologic: + falls Physical Exam Constitutional: + cachectic Eyes: PERRL, conjunctivae normal, anicteric sclerae ENMT: Mouth: + oral mucosal abnormality (dry mucous membranes) Neck: trachea midline, no thyromegaly Respiratory: normal respiratory effort, lungs clear to auscultation Cardiovascular: Rate/Rhythm: regular rate and regular rhythm Extremities: + edema (2+ pretibial pitting edema. Poor skin turgor involving the arms) Gastrointestinal (Abdomen): Inspection/Auscultation: + abdomen distended (tense ascites) and + hypoactive bowel sounds Percussion/Palpation: abdomen n ontender Musculoskeletal: Extremities: no cyanosis Skin: no rashes, warm and dry Neurologic: awake; not confused Results & Data ([place]) Vital Signs (Past 12 Hours) Vital Signs Temp Pulse Pulse Resp BP Pulse Ox 03/18/20 07:49 36.4 C L 89 17 95/63 L 96 03/18/20 06:32 87 98/64 L 03/18/20 03:29 36.5 C 93 H 17 90/60 L 95 03/18/20 00:11 74 03/17/20 23:33 36.7 C 94 H 17 100/61 96 Laboratory Results Laboratory Tests 03/18/20 05:57 Sodium 118 L* Potassium 4.7 Chloride 85 L Carbon Dioxide 25 BUN 9 Creatinine 0.31 L Glucose 70 Calcium 7.7 L PG Care Time/CCT Total # of Minutes Spent Total Time Spent with Patient: Total time spent is greater than 50% in coordination of care (as documented) at patient's floor/unit and/or counseling patient: Coding Level of Care Code 21447 Subseq Hosp Care Lvl 3 Diagnoses Chronic hyponatremia E87.1 Metastatic colon cancer to liver C18.9; C78.7
[2020-03-18 13:40] LABS: Calcium 7.7 mg/dl (8.5-10.1); Creatinine Clr Calc Pharmacy 121.5 ml/min; Est GFR (African American) 119.4; Potassium 4.5 mmol/L (3.5-5.1)
--- NOTE | 2020-03-18 14:23 | Palliative Care Consultation ---
Date of Consultation March 18, 2020 Assessment & Plan (1) Palliative care encounter: Briefly this is an 79-year-old female with a history of colon rectal cancer diagnosed in May 2019 who has been undergoing chemotherapy. She was sent to the emergency room on 03/15 for a critical sodium level of 112. She was also having increased ascites and increased weakness. Patient has failed several other chemo regimens-CT scan on admission showed increase in her colonic mass, increased liver mets as well as increase in pulmonary nodules. Patient underwent paracentesis on 03/16-4 L of fluid removed, patient reports she feels almost as distended as before the tap. -Spoke with patient this afternoon-patient aware that her cancer is not responding to any treatment, aware that no further treatment will likely be helpful. Patient amenable to hospice referral. Goal is to return home with her -Spoke with patient's , Elke, [phone], patient's also understands her current condition as well as prognosis, he is also agreeable to hospice referral. Collaborated with case management as well as attending physician. -Severe hyponatremia-slowly improving. Sodium on admission 112, sodium this a.m. 117. -Metastatic colon cancer-disease progression while on chemo-increased liver mets, increase in: Mass, increase in pulmonary nodules. Patient and wanting comfort care at home. -Ascites-status post paracentesis on 03/16 for 4 L-abdomen is firm but not tense, appears to have reaccumulated most of the 4 L removed. Patient continues to have leakage from paracentesis site-dressing and clothing soaked-asked nursing to place an ostomy bag over site to control as well as measure drainage. Discussed plan for controlling her ascites drainage with . -Weakness-patient and understand that there may be minimal improvement once home, agreeable to hospice referral -CODE STATUS-conditional. No shock, no chest compressions, okay with intubation if needed. (2) Metastatic colon cancer to liver: (3) Abdominal ascites: Ascites type: other type Qualified Code(s): R18.8 - Other ascites (4) Weakness: (5) Chronic hyponatremia: History of Present Illness Reason for Consultation: Address goals of care Requesting Physician: Dr. Dewey Attending Physician: Jim Vasquez MD History of Present Illness Briefly this is an 79-year-old female with a history of colon rectal cancer diagnosed in May 2019 who has been undergoing chemotherapy. She was sent to the emergency room on 03/15 for a critical sodium level of 112. She was also having increased ascites and increased weakness. Patient has failed several other chemo regimens-CT scan on admission showed increase in her colonic mass, increased liver mets as well as increase in pulmonary nodules. Patient underwent paracentesis on 03/16-4 L of fluid removed, patient reports she feels almost as distended as before the tap. Asked to see patient to discuss goals of care. Patient currently has a conditional code -no CPR, no shock, yes to intubation. Allergies Allergy/AdvReac Type Severity Reaction Status Date / Time tomato AdvReac Verified 03/16/20 12:54 Home Medications Home Medications Medication Instructions Recorded Confirmed Type calcium carbonate [Calcium 500] 500 mg PO QAM 05/04/19 03/15/20 History omega-3 fatty acids 500 mg capsule 1,000 mg PO BID cap 05/25/19 03/15/20 History vit A 7,160 unit-vit C 113 mg-vit 1 tab PO BID 05/25/19 03/15/20 History X-jjcd-jyoqqs-lutein 0.5 mg tablet ferrous sulfate 0 mg PO DAILY 03/15/20 03/15/20 History Patient History Medical History Brain tumor SEVERAL YEARS AGO AND MONITORING AND HAS NOT CHANGED Colorectal cancer WILL BE STARTING CHEMO Loss of appetite Macular degeneration Metastatic colon cancer to liver Peripheral edema Severe protein-calorie malnutrition Surgical History H/O colonoscopy Family History Brother Cancer Father Stroke Other No family history of bleeding disorder Social History Preferred Language: Danish Communication Ability: Effective Matlab Developer Required: No Beliefs That Will Affect Care: None marital status: Current Living Situation: Spouse current occupational status: retired Other Information That Helps Us Care for You: No Feels Safe at Home: Yes Safety Concerns: Feels Safe At This Time Smoking Status: Never smoker Second Hand Exposure: No ; Hx Alcohol Use: No Hx Substance Use: No Review of Systems Review of Systems: Positive for weakness, positive for increased ascites, positive mild abdominal pain, positive lower extremity edema Negative for fever, chills, chest pain, shortness of breath Physical Exam Physical Exam: PE: Patient awake and alert, able to recount significant details of her cancer, no acute distress at rest HEENT: EOMI, hearing within normal limits Respirations: Clear breath sounds, unlabored, on room air CV: Regular rate, 3+ lower extremity edema to the level of the knees Abdomen: Distended, positive ascites. Positive leakage from right abdominal paracentesis site-dressing and clothing soaked Extremities: 3+ edema Neuro: Alert and oriented x3 Results & Data Vital Signs (Past 12 Hours) Vital Signs Temp Pulse Resp BP Pulse Ox 03/18/20 11:33 98.1 F 90 17 93/66 L 96 03/18/20 07:49 97.5 F L 89 17 95/63 L 96 03/18/20 06:32 87 98/64 L 03/18/20 03:29 97.7 F 93 H 17 90/60 L 95 PG Care Time/CCT Total # of Minutes Spent Total Time Spent with Patient: Total time spent 70 minutes with greater than 50% of the time spent at bedside discussing patient's goals of care, spoke with patient's at length. Collaborated with case management as well as attending physician Dr. Vasquez. Coding Level of Care Code 44403 Inpt Consult Level 3 Diagnoses Palliative care encounter Z51.5 Metastatic colon cancer to liver C18.9; C78.7 Abdominal ascites R18.8 Ascites type: other type Weakness R53.1 Chronic hyponatremia E87.1 Time Spent (min) 70
[2020-03-19] MEDS: HEPARIN 100 UNIT/ML 5ML FLUSH FLUSH PRN (06:00)
[2020-03-19 06:58] LABS: BUN Creatinine Ratio 22.1 (10-20); Calcium 7.4 mg/dl (8.5-10.1); Creatinine Clr Calc Pharmacy 87.9 ml/min; Est GFR (African American) 107.4; Est GFR (Non-African American) 92.6; Potassium 4.4 mmol/L (3.5-5.1)
[2020-03-19] MEDS: ENOXAPARIN INJ 40 MG/0.4 ML SYR SQ SCH (08:08)
[2020-03-19] MEDS: CEROVITE ADV FORMULA TAB PO SCH (08:09)
[2020-03-19] MEDS: OMEGA-3 (PURIFIED FISH OIL) 1 GM CAP PO SCH (08:09)
[2020-03-19] MEDS: CALCIUM CARBONATE 1250MG TAB PO SCH (08:10)
[2020-03-19] MEDS: SODIUM CHLORIDE 1 GM TABLET PO SCH (08:10)
[2020-03-19] MEDS ORDERED: FUROSEMIDE 20 MG TAB PO SCH (09:00)
--- NOTE | 2020-03-19 09:15 | Nephrology Progress Note ---
Date of Service March 19, 2020 Assessment & Plan (1) Chronic hyponatremia: * Hypoosmolar hyponatremia related to underlying colon cancer, metastatic liver disease and Irenotecan therapy * Serum sodium is now gradually trending up on NaCl tablets. Serum sodium is 119 mmol/L this am * Continue NaCl 2g po BID. Will provide Furosemide 20 mg po BID today to help reduce urinary concentrating ability * Will recheck PRP at noon today (2) Metastatic colon cancer to liver: * 4 L paracentesis completed 03/16/20 * Oncology has been consulted. Patient may transition to hospice care Admission and Anticipated Discharge Date Admission Date: March 15, 2020 Subjective Mrs. Hernadez was seen & examined in her hospital room this morning. She remains weak but states that she is tolerating oral NaCl tablets without GI upset. Mrs. Hernadez notes that her abdominal ascites is reaccumulating. Her abdomen is again becoming distended Review of Systems Constitutional: + weakness; no fever Eyes: no problem reported Ear, Nose, Mouth, Throat: no problem reported Respiratory: no cough and no dyspnea Cardiovascular: + edema; no chest pain and no palpitations Gastrointestinal: + problem reported (+ abdominal distention); no abdominal pain, no nausea, no vomiting and no diarrhea/loose stools Genitourinary: no dysuria and no hematuria Musculoskeletal: no back pain Integumentary: no rash Neurologic: + falls Physical Exam Constitutional: + cachectic Eyes: PERRL, conjunctivae normal, anicteric sclerae ENMT: Mouth: + oral mucosal abnormality (dry mucous membranes) Neck: trachea midline, no thyromegaly Respiratory: normal respiratory effort, lungs clear to auscultation Cardiovascular: Rate/Rhythm: regular rate and regular rhythm Extremities: + edema (2+ pretibial pitting edema. Poor skin turgor involving the arms) Gastrointestinal (Abdomen): Inspection/Auscultation: + abdomen distended (tense ascites) and + hypoactive bowel sounds Percussion/Palpation: abdomen nontender Musculoskeletal: Extremities: no cyanosis Skin: no rashes, warm and dry Neurologic: awake; not confused Results & Data ([facility]) Vital Signs (Past 12 Hours) Vital Signs Temp Pulse Pulse Resp BP Pulse Ox 03/19/20 07:53 36.4 C L 109 H 16 97/58 L 90 03/19/20 03:37 36.7 C 113 H 16 99/64 L 91 03/19/20 00:00 36.5 C 96 H 17 107/70 92 03/18/20 23:00 89 Laboratory Results Laboratory Tests 03/19/20 05:45 Sodium 119 L* Potassium 4.4 Chloride 86 L Carbon Dioxide 24 BUN 10 Creatinine 0.47 L Glucose 77 Calcium 7.4 L PG Care Time/CCT Total # of Minutes Spent Total Time Spent with Patient: Total time spent is greater than 50% in coordination of care (as documented) at patient's floor/unit and/or counseling patient: Coding Level of Care Code 62012 Subseq Hosp Care Lvl 3 Diagnoses Chronic hyponatremia E87.1 Metastatic colon cancer to liver C18.9; C78.7
--- NOTE | 2020-03-19 12:42 | Discharge Summary ---
Date of Service March 19, 2020 Admission HPI Per Admitting Provider Alma Hernadez is an 79 year old female with an unfortunate history of metastatic colon cancer to her liver who presents to the ER [facility] showed severe hyponatremia at 112 mmol/L. She notes in the last 2 days feeling more acutely dizzy, very weak and off balance. No seizures but she has fallen twice without any injuries due to those falls. She also has worsening ascites which has been gradually increasing since therapeutic paracentesis performed on February 22 with 4L taken off at that time. Currently her ascites is the worst it has been and she has not been eating or drinking well for the last week. She has lost her appetite but no dysphagia or odynophagia. She denies any nausea, vomiting, fevers, chills, abdominal pain or recent change in bowel habit. Although notes since starting current round of chemotherapy her bowels are loose and unpredictable and black (since starting iron supplementation). Principal Diagnosis colon cancer malignant ascites transtiion to hospice care Discharge Exam The patient appeared chronically ill and nearing end-of-life Vital signs as documented. Lungs are diminished Cardiac exam, Rhythm is regular.. No murmurs, rubs or gallops. Abdominal exam reveals hypoactive bowel sounds ascites and distention leaking from her right flank Discharge Data Allergies Allergy/AdvReac Type Severity Reaction Status Date / Time tomato AdvReac Verified 03/16/20 12:54 Consultations 03/15/20 13:39 ED Decision to Admit Stat 03/15/20 20:33 Consult Nutrition Routine 03/15/20 21:18 Consult Oncology Routine 03/16/20 07:27 Consult Nephrology Routine 03/16/20 12:10 Consult Palliative Care Routine Ordered Studies 03/15/20 11:16 CT abd pelvis IV con only Stat CT cervical spine wo con Stat CT chest w con Stat CT head/brain wo con Stat 03/16/20 US paracentesis abd w/image Stat Hospital Course (1) Acute hyponatremia: Moderate symptoms of fatigue, lethargy, nausea, dizziness and gait disturbance. No seizures. Secondary to suspected liver failure and hypervolemic state in the setting of metastatic colon cancer, possibly also influenced by chemotherapy. Reduced from 127 to 112 in 9 days anticipate going home on hospice met with palliative care 03/18/20, choosing home agency (2) Abdominal ascites: US guided paracentesis performed 03/16, 4 liters removed tolerated well but persistent leakage of ascites WBC only 89, no signs of SBP (3) Weakness: Secondary to hyponatremia and metastatic malignancy (4) Metastatic colon cancer to liver: Enlargement of colonic mass and hepatic masses on CT. Possible pulmonary met on lung. Compression fractures. patient is not responding to treatment combined with her severe hyponatremia, Dr. Dewey recommends stopping chemotherapy and changing to palliative approach palliative care consulted to see 03/18/20 patient is aware of this, okay with home hospice she is DNR CT abd/pelvis 03/15/20 IMPRESSION: 1. No evidence of acute intra-abdominal or pelvic injury. 2. Increasing large volume of ascites 3. Slight enlargement in the large hepatic metastasis 4. Slight enlargement in the colonic mass at the level of the splenic flexure (5) Severe protein-calorie malnutrition: (6) Loss of appetite: related to malignancy, (7) Transition from home health care to hospice: Total Time Total Time Spent Total Time Spent (In Minutes): It required greater than 30 minutes to prepare this patient for discharge Discharge Plan Discharge Items Patient Disposition: Hospice - Home Reason For Visit: SEVERE PYPONATREMIA Discharge Diagnosis: metastatic colon cancer malignant ascites hospice care initiated Activity: Per Instructions section Activity Comment: may do as much or little as you desire Non-emergency contact: Primary Care Provider and Specialist Call non-emergency contact if: you have any medication questions, your symptoms worsen and your pain is not controlled Follow-up/Referrals: PCP,NO [Primary Care Provider] - Diet: Regular Addtl Attending Provider Instructions: please connect with Hospice to help control your symptoms at home Please continue to apply the collection bag to help control your leaking ascites Pending Studies at Discharge: No Stand-Alone Forms: My [facility] Medications and DC Order Prescriptions: New morphine 20 mg/5 mL (4 mg/mL) solution 20 mg PO Q6H Qty: 100 RF: 0 lorazepam [Ativan] 1 mg tablet 0.5 - 1 mg PO Q6H PRN (Reason: anxiety) Qty: 30 RF: 0 ondansetron HCl [Zofran] 4 mg tablet 4 mg PO Q8H PRN (Reason: nausea and vomiting) 30 Days Qty: 30 RF: 0 Discontinued omega-3 fatty acids 500 mg capsule 1,000 mg PO BID RF: 0 Ocular Vitamins 7,160 unit- 113 mg-0.5 mg tablet 1 tab PO BID RF: 0 calcium carbonate [Calcium 500] 500 mg calcium (1,250 mg) Tablet 500 mg PO QAM RF: 0 ferrous sulfate 134 mg (27 mg iron) Tablet 0 mg PO DAILY RF: 0 Discharge Orders: Discharge Order (Routine); Ordered 03/19/20 Ordered By: Jim Vasquez Admission Data Admit Date/Time: 03/15/20 15:04 Attending Provider: Jim Vasquez Admit Provider: Real Myrick Primary Care Provider: PCP,NO Other Providers: Real Myrick ; Anderson Dewey V. ; Ravindra Pollard ; Iliana Tam Coding Level of Care Code D/C Day Management >30 mins Diagnoses Acute hyponatremia E87.1 Abdominal ascites R18.8 Ascites type: other type Weakness R53.1 Metastatic colon cancer to liver C18.9; C78.7 Severe protein-calorie malnutrition E43 Loss of appetite R63.0 Transition from home health care to hospice
[2020-03-19 12:54] LABS: BUN Creatinine Ratio 21.2 (10-20); Calcium 7.7 mg/dl (8.5-10.1); Creatinine Clr Calc Pharmacy 87.9 ml/min; Est GFR (African American) 107.4; Est GFR (Non-African American) 92.6; Potassium 4.3 mmol/L (3.5-5.1)
== END 2020-03-19 17:02 | disposition hospice, home (50) | DRG 374 ==
LOC: ED 10:57 → 2S 15:04 → SUATTDRO 15:04 → 2S 16:09